=== PATIENT | female | born 1990 | race Caucasian/White ===

== ENCOUNTER → 2017-10-28 10:03 | Outpatient (CLI) | payer BC, SELFPAY ==
--- NOTE | 2017-10-28 10:08 | XR_ITS ---
XR lumbar spine min 4V Ordering Physician: Ksenia Vizcarra Patient Age: 27 years: Female HISTORY: ITS.REASON: ACUTE BILAT LOW BACK PAIN TECHNIQUE: 5 view lumbar spine series. COMPARISON :No prior FINDINGS The vertebral bodies are intact. No compression fractures or lesions. L5/S1. Mild disc space narrowing Other disc spaces appear intact. Minor Schmorl's node yields the subtle focal superior endplate cavity cavity at superior endplate L2. The pedicles intact.. No listhesis. Good alignment L-spine throughout. SI joints unremarkable. Moderate stool right colon. IMPRESSION: L5/S1. Mild disc space narrowing . Otherwise unremarkable L-spine
== END ==
PROVIDERS: PCP Family Medicine; Visit Provider Nurse Practitioner Family
DX: M54.5 Low back pain (principal)
CPT/HCPCS: 72110

== ENCOUNTER 2017-12-24 10:30 | Outpatient (RCR) | payer BC, SELFPAY | END 2018-01-14 11:27 | disposition home or self-care (01) | LOC: PT 10:30 | PROVIDERS: Family Provider Family Medicine; PCP Family Medicine; Visit Provider Nurse Practitioner Family | DX: M54.42 Lumbago with sciatica, left side (principal); M54.41 Lumbago with sciatica, right side | CPT/HCPCS: 97010; 97014; 97035; 97110; 97140; 97163; 97164; G0283 ==

== ENCOUNTER → 2018-04-06 08:51 | Outpatient (CLI) | payer BC, SELFPAY ==
[2018-04-06 14:18] LABS: Basophils % 0.4 % (0.1-2.0); Eosinophils # 0.3 K/mm3 (0.0-0.4); Eosinophils % 2.9 % (0.1-12.0); Hematocrit 42.4 % (37.0-47.0); Hemoglobin 13.6 g/dL (12.2-16.2); Lymphocytes # 3.3 K/mm3 (0.7-4.5); Mean Corpuscular Hemoglobin 28.3 pg (27.0-31.2); Mean Corpuscular Volume 88.5 fl (81-99); Mean Platelet Volume 8.4 fl (7.4-10.4); Monocytes # 0.4 K/mm3 (0.1-1.0); Neutrophils % 59.7 % (37.0-80.0); Platelet Count 298 K/mm3 (142-424); Red Blood Count 4.79 M/mm3 (4.20-5.40); White Blood Count 10.1 K/mm3 (4.8-10.8)
[2018-04-06 14:20] LABS: HCG Qualitative, Serum Negative (Negative)
[2018-04-06 15:03] LABS: Anion Gap 15.1 mEq/L (5-15); Blood Urea Nitrogen 9 mg/dL (7-18); Calcium 8.9 mg/dL (8.5-10.1); Carbon Dioxide 25 mmol/L (21.0-32.0); Chloride 105 mmol/L (98-107); Creatinine,Serum 0.72 mg/dL (0.55-1.02); Estimated Glomerular Filt Rate 97 ml/min (>60); GFR (African American) 118 ML/MIN (>60); Glucose 86 mg/dL (74-106); Potassium 4.1 mmoL/L (3.5-5.1); Sodium 141 mmol/L (136-145)
== END ==
PROVIDERS: PCP Family Medicine; Visit Provider Orthopaedic Surgery
DX: Z01.818 Encounter for other preprocedural examination (principal); M54.42 Lumbago with sciatica, left side; M54.41 Lumbago with sciatica, right side
CPT/HCPCS: 36415; 80048; 84703; 85025

== ENCOUNTER 2018-11-15 09:00 | Outpatient (RCR) | payer OTHER, SELFPAY | END 2018-12-20 10:57 | disposition home or self-care (01) | LOC: PT.CARL 09:00 | PROVIDERS: Visit Provider Orthopaedic Surgery | DX: S46.102A Unspecified injury of muscle, fascia and tendon of long head of biceps, left arm, initial encounter (principal) | CPT/HCPCS: 97010; 97014; 97033; 97035; 97110; 97140; 97163; G0283 ==

== ENCOUNTER → 2020-03-14 09:10 | Outpatient (POV) | payer SELFPAY ==
[2020-03-14 09:33] VITALS: BP 122/74; PULSE 85; RESP 18; O2SAT 98; BMI 33.8
--- NOTE | 2020-03-14 10:02 | HMH.PMCON ---
Assessment and Plan (1) Sacroiliitis Status: Acute Category: Medical Code(s): M46.1 - Sacroiliitis, not elsewhere classified (2) Low back pain Status: Chronic Category: Medical Code(s): M54.5 - Low back pain - Assessment and plan all Dx Assessment and Plan for all problems:: The patient has tried and failed conservative therapies of injections, physical therapy, and home stretching. She has tried anti-inflammatories as well as muscle relaxers. Patient says she has not gotten any relief. She does report that physical therapy made her pain worse. She has had surgical intervention in the past. She does have a positive compression, distraction, and Sabina's test today. She has tenderness noted over her left SI joint. She and I did discuss undergoing a left SI joint injection, however, she is not interested. We also discussed spinal cord stimulation. She did discuss this with her primary care provider in the past, however, she decided against it. Patient and I did discuss oral medications. She has tried taking multiple oral medications. We can order the patient prednisone for a week to see if this improves any of her pain. I will order her prednisone 20 mg 1 tablet p.o. twice daily for 5 days. She will follow-up with us after she sees Dr. Foley. Her appointment is the end of March. She has been instructed to contact clinic if she has any concerns before next appointment. The patient and I specifically discussed risk factors for COVID19. These risks include, but are not limited to age greater than 60, heart or lung disease, diabetes, immunosuppression, and travel. We also discussed NSAIDs may worsen COVID19 infection or symptoms. Patient should not use NSAIDs to treat COVID19 signs or symptoms. Patient was also informed that any type of corticosteroid of any form (oral or injection) will decrease the patient's immune system response and may increase the likelihood of COVID19 infection [address] symptoms[address]. Nielsen has reviewed this note and agrees with this plan of care. This note was dictated using voice recognition software and make contain errors or omissions. HPI - Data of Consult Patient: new to practice Consult date: 03/14/20 Requesting Physician: Annie Montana APRN Primary Care Provider: Ksenia Vizcarra APRN - Consult Narrative Reason for consult: Left low back pain, left buttock pain, left hip and leg pain History of present illness: Ms. Gamboa is a 29 year old female who presents today for consultation for left low back pain with radiation into left buttock, left hip, left groin, and left leg. Patient has a longstanding history of chronic low back pain. She reports that she had severe low back pain and 2017. She reports that she was throwing a softball and felt something pop in her back. She did see her primary care provider who referred her to Dr. Foley. At that time, the patient was noted to have some nerve impingement to her cervical and lumbar spine. She did undergo surgery. She had a repeat surgery in 2019 for herniated disc. She says that Had performed that surgery as well. On February 19 of this year, the patient was working at [employer] and was pulling a cart when she felt a popping sensation in her left low back area. Patient says that she felt immediate pain into her left low back area and left hip. She says that the pain radiated into her left buttock and down her left leg causing her to have numbness and tingling into her foot. Patient did follow-up with Dr. Foley at that time. He did send her for an MRI of her lumbar spine. She does have imaging with her today. She rates her pain a 7 out of 10. Patient says she has tried physical therapy and did not get relief. She also reports that she has tried anti-inflammatories as well as muscle relaxers. Patient says she has had more than 5 rounds of injections with epidurals and did not get any relief in the past. She does continue with a stretching p
== END ==
PROVIDERS: PCP Nurse Practitioner Family; Visit Provider Clinical Nurse Specialist Family Health
DX: M46.1 Sacroiliitis, not elsewhere classified (principal); M54.5 Low back pain
CPT/HCPCS: 99202

== ENCOUNTER 2021-05-09 08:59 | Emergency (ER) | payer BC, SELFPAY ==
[2021-05-09 09:00] VITALS: BP 128/71; PULSE 76; RESP 19; TEMP 37.1; O2SAT 98; BMI 36.6
--- NOTE | 2021-05-09 09:45 | HMH.EDUTC ---
[facility] [place]: Thrush Disposition: Home, Self-Care Condition on Discharge: Good Instructions: DI for Thrush, Thrush-Adult Additional Instructions: Eat yogurt twice per day for the next few weeks. You could take a probiotic also. Take the medications as directed. Let your ENT know what we prescribed and follow up with them. Follow up with your primary care physician. GO TO THE ER FOR ANY WORSENING SYMPTOMS OR CONCERN Prescriptions: Fluconazole [Diflucan 100mg tablet] 100 mg PO DAILY 7 Days #7 tab Transmission Status: Received by [id number] Referrals: Michael Gunn MD [Primary Care Provider] - Time of Disposition: 09:50 Medical Decision Making - Medical Records Medical records reviewed: No: I reviewed the patient's medical records. - Germán Inquiry Pt receiving controlled substance: No Vital Signs: 05/09/21 09:00 05/09/21 09:50 Temperature 98.8 F 98.8 F Temperature Source Oral Pulse Rate 76 Pulse Rate [Right Brachial] 76 Respiratory Rate 19 19 Blood Pressure 128/71 Blood Pressure [Right Arm] 128/71 Blood Pressure Mean [Right Arm] 90 Blood Pressure Source [Right Arm] Automatic Cuff Blood Pressure Position [Right Arm] Sitting 02 Sat by Pulse Oximetry 98 Oxygen Delivery Method Room Air [facility] [place] - General Stated complaint: possible thrush Time Seen by Provider: 05/09/21 09:25 Mode of Arrival: Ambulatory Source of Information: Patient Limitations: No Limitations Description of Symptoms (Recalled from Triage Doc. by RN): PATIENT C/O THRUSH O TONGUE SINCE YESTERDAY HEENT Symptoms (Recalled from RN notes): Yes Resp Symptoms (Recalled from RN notes): No Skin Symptoms (Recalled from RN notes): No MS Symptoms (Recalled from RN notes): No Functional Status (Recalled from RN notes): WNL - History of Present Illness Provider Complaint: She is here with complaints of having thrush. She had her tonsils removed a 5 days ago. She has done well since the surgery, but last night she started having a white coating on her tongue and her tongue is very tender when she tries to eat. - Related Data Home Medications Medication Instructions Recorded Confirmed ARIPiprazole [Abilify 10mg 10 mg PO DAILY 05/09/21 05/09/21 Tablet] Escitalopram Oxalate [Lexapro] 20 mg PO DAILY 05/09/21 05/09/21 Hydrocodone/Acetaminophen 1 tab PO QID 05/09/21 05/09/21 [Hydrocodone-Acetamin 7.5-325] Liraglutide [Saxenda] 3 mg SQ WEEKLY 05/09/21 05/09/21 Previous Rx's Medication Instructions Recorded Fluconazole [Diflucan 100mg tablet] 100 mg PO DAILY 7 Days #7 tab 05/09/21 Allergies Allergy/AdvReac Type Severity Reaction Status Date / Time cephalexin Allergy Unknown S-DIFF. Verified 01/27/19 14:07 BREATHING naproxen Allergy Unknown DOES NOT Verified 01/27/19 14:07 FEEL RIGHT. TONGUE TINGLING codeine Allergy Verified 01/27/19 14:07 meloxicam [From Mobic] Allergy Verified 05/09/21 09:19 - Worker's Comp Is this a Worker's Comp case?: No [facility] History - Hepatitis A Screen Drug use history?: No High risk sexual behaviors?: No History of sexually transmitted infection?: No Currently employed?: No Childcare worker?: No Do you have indoor plumbing?: Yes Do you have electricity?: Yes Attestation statement:: This patient has been screened for Hepatitis A risk factors. I have reviewed the patient's past medical history: Yes Medical History: Denies:: Cancer, Diabetes Mellitus Type 1, Diabetes Mellitus Type 2, MRSA Laterality Cases: Right: Arthroscopy Shoulder, Other, Bilateral: Myringotomy (Ear Tubes), Tonsillectomy Amputation: No Fractures: No - Social History Smoking Status: Current every day smoker Tobacco Type: cigarettes # Packs/Day (cigarettes): 1 Alcohol Intake: never Occupational Status: other Housing: house Household Members: other Family Hx:: Unable to obtain ROS Obtained: Yes All systems reviewed
[2021-05-09 09:50] VITALS: BP 128/71; PULSE 76; RESP 19; TEMP 37.1; O2SAT 98
== END 2021-05-09 09:55 | disposition home or self-care (01) ==
PROVIDERS: Emergency Provider Nurse Practitioner Family; PCP Family Medicine
DX: B37.0 Candidal stomatitis (principal); F17.210 Nicotine dependence, cigarettes, uncomplicated
CPT/HCPCS: 99202; G0463

== ENCOUNTER → 2021-09-30 11:16 | Outpatient (CLI) | payer BC, SELFPAY ==
--- NOTE | 2021-09-30 11:24 | XR_ITS ---
FINAL REPORT CLINICAL HISTORY: PAIN OF RIGHT HEEL FINDINGS: Axial and lateral views of the right calcaneus were obtained. There is no prior exam for comparison. There is no acute fracture or other acute osseous abnormality. There is an inferior calcaneal spur. The joint spaces are preserved. The soft tissues are unremarkable. IMPRESSION: No acute osseous abnormality of the right calcaneus. Reviewed, Interpreted and Dictated by Rossi Paulino MD Transcribed by Emma Brown Authenticated by Rossi Paulino MD on 09/30/2021 01:18:48 PM [facility]
== END ==
PROVIDERS: PCP Family Medicine; Visit Provider Nurse Practitioner Family
DX: M79.671 Pain in right foot (principal)
CPT/HCPCS: 73650

== ENCOUNTER 2021-10-13 11:22 | Emergency (ER) | payer BC, SELFPAY ==
--- NOTE | 2021-10-13 11:26 | XR_ITS ---
FINAL REPORT CLINICAL HISTORY: rolled ankle jumping over a fence FINDINGS: LEFT ANKLE Three views of the left ankle were obtained. There is no acute fracture or dislocation. The joint spaces and mortise are intact. There is a plantar calcaneal spur. There is no soft tissue abnormality. IMPRESSION: No acute bony abnormality. Reviewed, Interpreted and Dictated by Justen Castro III, MD Transcribed by Emma Brown Authenticated and . [facility]
[2021-10-13 11:30] VITALS: BP 134/87; PULSE 91; RESP 19; TEMP 37; O2SAT 98; BMI 38.0
--- NOTE | 2021-10-13 11:59 | HMH.EDUTC ---
[facility] [place] Clinical Impression: Ankle sprain Qualifiers: Encounter type: initial encounter Involved ligament of ankle: unspecified ligament Laterality: left Qualified Code(s): S93.402A - Sprain of unspecified ligament of left ankle, initial encounter Disposition: Home, Self-Care Condition on Discharge: Good Instructions: Ankle Sprain, DI for Ankle Sprain, How To Perform RICE (Rest, Ice, Compress, Elevate) Additional Instructions: *weight bearing as tolerated *RICE, Rest the extremity, Ice 15-20 minutes 3-4 times daily, Compress- wear the glenna wrap as discussed as much as possible to help reduce swelling and pain, Elevate the extremity when at rest *Walking boot is for support and help control swelling, use it except in the shower. Be sure that is not to tight but not to loose either *Elevate when resting *Ibuprofen as directed on package every 6-8 hours as needed for pain an inflammation. If need something more can take Tylenol in between doses of Ibuprofen to help Immediately follow up with your family doctor for new or worsening of symptoms, or no noticeable improvement over the next 3-5 days Return if needed Straight to ER if any life threatening symptoms You can call back to the [facility] later this evening for official Radiology reading of your xray Follow up with Podiatry if no improvement or any worsening of symptoms Referrals: Michael Gunn MD [Primary Care Provider] - Time of Disposition: 12:22 Medical Decision Making - Germán Inquiry Pt receiving controlled substance: No Germán was queried for this patient: No Vital Signs: 10/13/21 11:30 10/13/21 12:25 Temperature 98.6 F 98.6 F Temperature Source Oral Pulse Rate 91 H Pulse Rate [Right Brachial] 91 H Respiratory Rate 19 19 Blood Pressure 134/87 Blood Pressure [Right Arm] 134/87 Blood Pressure Mean [Right Arm] 102 Blood Pressure Source [Right Arm] Automatic Cuff Blood Pressure Position [Right Arm] Sitting 02 Sat by Pulse Oximetry 98 Oxygen Delivery Method Room Air - Radiology Data #1 Image(s): Ankle Image Reviewed: Yes I reviewed the patient's radiology image Preliminary Findings: No Fracture [place]en [facility] [place] - General Stated complaint: left ankle pain Time Seen by Provider: 10/13/21 11:59 Mode of Arrival: Ambulatory Source of Information: Patient Limitations: No Limitations Description of Symptoms (Recalled from Triage Doc. by RN): PATIENT C/O LEFT ANKLE PAIN AFTER TWISTED IT WHILE CLIMBING OVER A FENCE LAST NIGHT HEENT Symptoms (Recalled from RN notes): No Resp Symptoms (Recalled from RN notes): No Skin Symptoms (Recalled from RN notes): No MS Symptoms (Recalled from RN notes): Yes Functional Status (Recalled from RN notes): WNL - History of Present Illness Provider Complaint: Patient states that she was climbing over a fence last night when her hand got caught on the barbedwire and she rolled her left ankle States that ever since she has been having pain in her left ankle when she tries to walk on it or bare any weight so this morning she came in to get it checked out - Related Data Home Medications Medication Instructions Recorded Confirmed ARIPiprazole [Abilify 10mg 10 mg PO DAILY 05/09/21 05/09/21 Tablet] Escitalopram Oxalate [Lexapro] 20 mg PO DAILY 05/09/21 05/09/21 Hydrocodone/Acetaminophen 1 tab PO QID 05/09/21 05/09/21 [Hydrocodone-Acetamin 7.5-325] Liraglutide [Saxenda] 3 mg SQ WEEKLY 05/09/21 05/09/21 Previous Rx's Medication Instructions Recorded Fluconazole [Diflucan 100mg tablet] 100 mg PO DAILY 7 Days #7 tab 05/09/21 Allergies Allergy/AdvReac Type Severity Reaction Status Date / Time cephalexin Allergy Unknown S-DIFF. Verified 01/27/19 14:07 BREATHING naproxen Allergy Unknown DOES NOT Verified 01/27/19 14:07 FEEL RIGHT. TONGUE TINGLING codeine Allergy Verified 01/27/19 14:07 meloxicam [From Mobic] Allergy Verified 05/09/21 09:19 - Worker'
[2021-10-13 12:25] VITALS: BP 134/87; PULSE 91; RESP 19; TEMP 37; O2SAT 98
== END 2021-10-13 12:30 | disposition home or self-care (01) ==
PROVIDERS: Emergency Provider Nurse Practitioner; PCP Family Medicine
DX: S93.402A Sprain of unspecified ligament of left ankle, initial encounter (principal)
CPT/HCPCS: 73610; 99212; G0463

== ENCOUNTER 2022-04-18 11:42 | Emergency (ER) | payer BC, SELFPAY ==
[2022-04-18 11:50] VITALS: BP 156/87; PULSE 123; RESP 20; TEMP 36.9; O2SAT 98; BMI 38.2
[2022-04-18 12:30] VITALS: BP 156/87; PULSE 123; RESP 20; TEMP 36.9; O2SAT 98
--- NOTE | 2022-04-18 12:31 | EXP.UTC ---
Discharge Plan Disposition Patient Disposition: Home, Self-Care Condition: Good Prescriptions Prescriptions: New amoxicillin [amoxicillin] 500 mg tablet 500 mg PO BID 10 Days Qty: 20 0RF No Action phentermine 37.5 mg tablet 37.5 mg PO Label Comments: TAKE 1 TABLET BY MOUTH ONCE DAILY IN THE MORNING BEFORE BREAKFAST topiramate 25 mg tablet 25 mg PO Label Comments: TAKE 1 TABLET BY MOUTH ONCE DAILY escitalopram oxalate 20 MG tablet 20 mg PO DAILY aripiprazole 10 MG tablet 10 mg PO DAILY Referrals Follow up/Referrals: Michael Gunn MD [Primary Care Provider] - See instructions Activity Restrictions/Add. Instructions Additional Instructions/Restrictions: Start antibiotic as soon as possible and be sure to take as ordered for full length of time even though he should start feeling better in 24-48 hours. Tylenol or Motrin as needed for pain or fever Encourage fluids, water, Gatorade, Powerade, Pedialyte if infant/toddler/child Warm compresses often helps when placed over ear Return immediately for new or worsening symptoms no noticeable improvement in 48-72 hours and in 10-14 days to ensure the ears are return to baseline. Follow-up with primary care Clinical Impressions Clinical Impression: Otitis media, Upper respiratory infection Instructions Patient Instructions: Middle Ear Infection Discharge ED Provider: Hussein ([facility])Alic[place] [facility] [place] General Stated complaint: SARAVIA, body aches, diarrhea, cough Mode of Arrival: Ambulatory Source of Information: Patient Limitations: No Limitations Time Seen by Provider: 04/18/22 12:31 Description of Symptoms (Recalled from Triage Doc. by RN): PATIENT C/O BODY ACHES, SORE THROAT, AND RIGHT EAR PAIN THAT STARTED LAST NIGHT HEENT Symptoms (Recalled from RN notes): Yes Resp Symptoms (Recalled from RN notes): Yes Skin Symptoms (Recalled from RN notes): No MS Symptoms (Recalled from RN notes): No Functional Status (Recalled from RN notes): WNL History of Present Illness Provider Complaint: 31 yr old female presnets for body aches,fever and rt ear pain since last night Related Data Home Medications Medication Instructions Recorded Confirmed aripiprazole 10 mg tablet 10 mg PO DAILY Depression 05/09/21 10/29/21 escitalopram oxalate 20 mg tablet 20 mg PO DAILY Depression 05/09/21 10/29/21 phentermine 37.5 mg tablet 37.5 mg PO 10/29/21 10/29/21 topiramate 25 mg tablet 25 mg PO 10/29/21 10/29/21 Previous Rx's Medication Instructions Recorded amoxicillin 500 mg tablet 500 mg PO BID 10 days #20 tabs 04/18/22 Allergies Allergy/AdvReac Type Severity Reaction Status Date / Time cephalexin Allergy Unknown S-DIFF. Verified 01/27/19 14:07 BREATHING naproxen Allergy Unknown DOES NOT Verified 01/27/19 14:07 FEEL RIGHT. TONGUE TINGLING codeine Allergy Verified 01/27/19 14:07 meloxicam [From Mobic] Allergy Verified 05/09/21 09:19 peanut Allergy Verified 10/29/21 13:00 shellfish derived Allergy Verified 10/29/21 13:00 Worker's Comp Is this a Worker's Comp case?: No [facility] Disclaimer: The information contained in this section may have been updated after the patient was seen, as this information can be updated by other users. 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
[2022-04-18 12:33] LABS: Coronavirus 19, PCR Not Detected (NotDetected); Influenza B, PCR Not Detected (NotDetected)
[2022-04-18 12:57] LABS: Influenza A, PCR Detected (NotDetected)
== END 2022-04-18 12:36 | disposition home or self-care (01) ==
PROVIDERS: Emergency Provider Nurse Practitioner Family; PCP Family Medicine
DX: J10.1 Influenza due to other identified influenza virus with other respiratory manifestations (principal); H66.90 Otitis media, unspecified, unspecified ear
CPT/HCPCS: 99212; C9803; G0463; U0003; U0005

== ENCOUNTER → 2022-09-08 12:26 | Outpatient (CLI) | payer BC, SELFPAY ==
--- NOTE | 2022-09-08 13:20 | US_ITS ---
PROCEDURE INFORMATION: Exam: US Right Breast, Complete Exam date and time: 09/08/2022 1:43 PM Age: 31 years old Clinical indication: Breast pain; Right TECHNIQUE: Imaging protocol: Complete ultrasound of all four quadrants of the right breast and the retroareolar regions, including ultrasound of the axilla when performed. COMPARISON: No relevant prior studies available. FINDINGS: Breast: Sonographic images of the right breast including the retroareolar region, all 4 quadrants and the axilla do not demonstrate any solid or cystic masses. No architectural distortion or acoustical shadowing. No skin thickening or axillary adenopathy. IMPRESSION: No sonographic evidence of malignancy. Annual bilateral mammographic screening is recommended to commence at the age of 40 unless otherwise clinically indicated. ASSESSMENT: BI-RADS Category 1: Negative
== END ==
PROVIDERS: PCP Family Medicine; Visit Provider Family Medicine
DX: N64.4 Mastodynia (principal)
CPT/HCPCS: 76641

== ENCOUNTER 2024-01-15 20:57 | Emergency (ER) | payer BC, SELFPAY ==
[2024-01-15 20:58] VITALS: BP 150/99; PULSE 89; RESP 16; TEMP 36.9; O2SAT 98; BMI 35.6
--- NOTE | 2024-01-15 21:37 | ED_ITS ---
Discharge Plan Disposition Patient Disposition: Home, Self-Care Condition: Good Prescriptions Prescriptions: No Action fluoxetine [Prozac] 40 mg capsule 40 mg PO BID Rx Instructions: administer in the morning and at noon/midday aripiprazole 10 MG tablet 10 mg PO DAILY Referrals Follow up/Referrals: Michael Gunn MD [Primary Care Provider] - See instructions Activity Restrictions/Add. Instructions Additional Instructions/Restrictions: You were evaluated in the emergency department today. At this time, you have some blood in your urine as well as a mild elevation in your white blood cell count, but labs and CT are otherwise reassuring. Please follow-up very closely with your primary care provider for reassessment. Return to the emergency department for new or worsening symptoms. Take Tylenol and ibuprofen every 4-6 hours at home as needed for pain Clinical Impressions Clinical Impression: Abdominal pain, LLQ, Hematuria, Leukocytosis Stand Alone Forms Stand Alone Forms: Work/School Release Instructions Patient Instructions: DI for Acute Abdominal Pain Print Language Print Language: Telugu Discharge ED Provider: Iva Can General Adult HPI General Chief complaint: Abdominal Pain Stated complaint: L side stomach pain Time Seen by Provider: 01/15/24 21:26 Mode of Arrival: Ambulatory Source of Information: Patient Limitations: No Limitations Description of Symptoms (Recalled from ER Triage Doc. by RN): Pt presents with left lower abdominal pain that began this morning. Pt states she had an episode of diarrhea, denies any nausea or vomiting. History of Present Illness HPI narrative: This patient is a 33-year-old female who denies significant past medical history presenting to the emergency department for left lower quadrant abdominal pain that started this morning. She had 1 episode of nonbloody diarrhea. No fevers, chills, nausea, vomiting, vaginal bleeding, abnormal vaginal discharge, or other concerns. Pain is currently 5 out of 10 and feels like needles in her left pelvis Related Data Home Medications ?Medication ?Instructions ?Recorded ?Confirmed aripiprazole 10 mg tablet 10 mg PO DAILY Depression 05/09/21 08/19/23 fluoxetine 40 mg capsule (Prozac) 40 mg PO BID 07/29/22 08/19/23 Allergies Allergy/AdvReac Type Severity Reaction Status Date / Time cephalexin Allergy Unknown S-DIFF. Verified 08/19/23 10:00 BREATHING naproxen Allergy Unknown DOES NOT Verified 08/19/23 10:00 FEEL RIGHT. TONGUE TINGLING codeine Allergy Verified 08/19/23 10:00 meloxicam [From Mobic] Allergy Verified 08/19/23 10:00 peanut Allergy Verified 08/19/23 10:00 shellfish derived Allergy Verified 08/19/23 10:00 [facility] Disclaimer: The information contained in this section may have been updated after the patient was seen, as this information can be updated by other users. Medical History Heel spur Surgical History History of neck surgery History of back surgery History of tympanostomy tube placement History of tonsillectomy Social History Smoking Status: Current every day smoker tobacco type: cigarettes packs per day: 1 alcohol intake: never current occupational status: other Travel in the last 8 weeks: None household members: other housing: house ROS Obtained: Yes All systems reviewed & no additional complaints except as documented Physical Exam General General appearance: alert and in no apparent distress Head Head exam: atraumatic and normocephalic Eye Eye exam: Present normal appearance, PERRL and EOMI ENT ENT exam: Present normal exam, normal oropharynx, mucous membranes moist and normal external ear exam Neck Neck exam: Present normal inspection, full ROM and trachea midline; Absent tenderness Chest Chest inspection: Present normal inspection and symmetric chest wall rise; Absent tenderness Respiratory Respiratory exam: Present normal lung sounds bilaterally; Absent respiratory distress, wheezes, stridor or accessory muscle use Cardiovascular Cardiovascular exam: Present regular rate and normal rhythm Abdominal Exam Abdominal exam: Present soft; Absent distention, tenderness or guarding Extremities Exam Extremities exam: Present normal inspection, full ROM and normal capillary refill; Absent tenderness or edema Back Exam Back exam: Present normal inspection and full ROM; Absent tenderness Neurological Exam Neurological exam: Present alert, oriented X3, CN II-XII intact and normal gait; Absent motor sensory deficit Psychiatric Psychiatric exam: Present normal affect and normal mood Skin Skin exam: Present warm and dry Medical Decision Making Medical Records Medical records reviewed: Yes I reviewed the patient's medical records. Germán Inquiry Pt receiving controlled substance: No Vital Signs: 01/15/24 20:58 01/15/24 22:00 01/15/24 23:09 Temperature 98.4 F 98 F Temperature Source Oral Oral Pulse Rate 92 H 81 Pulse Rate [Left] 89 Respiratory Rate 16 16 Blood Pressure 136/90 119/81 Blood Pressure [Right Radial Artery] 150/99 H Blood Pressure Mean [Right Radial Artery] 116 Blood Pressure Source Automatic Cuff Blood Pressure Position Sitting 02 Sat by Pulse Oximetry 98 98 Oxygen Delivery Method Room Air Room Air Lab Data Lab results reviewed: Yes I reviewed the patient's lab results. Lab Results 01/15/24 21:15: Urine Color Yellow, Urine Appearance Clear, Urine pH 6.0, Ur Specific [place] >= 1.030, Urine Protein Negative, Urine Glucose (UA) Negative, Urine Ketones Negative, Urine Blood 1+ A, Urine Nitrate Negative, Urine Bilirubin Negative, Urine Urobilinogen 1.0, Ur Leukocyte Esterase Negative, Urine RBC 5-10, Urine WBC Occasional, Ur Squamous Epith Cells None, Urine Bacteria Trace 01/15/24 21:30: WBC 13.9 H, RBC 5.19, Hgb 15.8, Hct 49.7 H, MCV 95.8, MCH 30.4, MCHC 31.8, RDW 13.1, Plt Count 366, MPV 8.9, Neut % (Auto) 63.3, Lymph % (Auto) 28.7, [place] % (Auto) 5.7, Eos % (Auto) 1.1, Baso % (Auto) 1.1, Neut # (Auto) 8.8 H, Lymph # (Auto) 4.0, [place] # (Auto) 0.8, Eos # (Auto) 0.2, Baso # (Auto) 0.2, Sodium 137, Potassium 3.6, Chloride 105, Carbon Dioxide 24, Anion Gap 11.6, BUN 11, Creatinine 0.70, Estimated Creat Clear 160, Estimated GFR 96, Est GFR ( Amer) 117, Glucose 81, Calcium 9.2, Total Bilirubin 0.5, AST 29, ALT 26, Alkaline Phosphatase 80, Total Protein 8.1, Albumin 4.8, Globulin 3.3 H, Albumin/Globulin Ratio 1.5, Lipase 159, Serum HCG, Qual Negative 01/15/24 21:30 01/15/24 21:30 Orders (Tests/Meds): ED MEDICATIONS Discontinued Medications Generic Name Dose Route Start Last Admin Trade Name Freq PRN Reason Stop Dose Admin Lactated Ringer's 1,000 mls @ 999 mls/hr 01/15/24 21:45 01/15/24 21:48 Lactated Ringer's 1000 Ml Bag IV 01/15/24 22:45 999 mls/hr .Q1H1M ONE Administration ORDERS Category Date Time Status CT abdomen pelvis wo con Stat Cat Scan 01/15/24 21:58 Completed Complete Blood Count Auto Diff Stat Lab 01/15/24 21:30 Completed Comprehensive Metabolic Panel Stat Lab 01/15/24 21:30 Completed Lipase Stat Lab 01/15/24 21:30 Completed Serum [HCG Qualitative, Serum] Stat Lab 01/15/24 21:30 Completed UA [Urinalysis and Microscopic] Stat Lab 01/15/24 21:15 Completed Medical Decision Narrative: In summary, this patient is a 33-year-old female presenting to the Emergency Department for evaluation of left lower quadrant abdominal pain. Differential diagnoses considered include but are not limited to colitis, ureterolithiasis, cystitis, pyelonephritis, ovarian cyst, musculoskeletal strain/sprain. Ruling out the most morbid conditions drove assessment. On exam, the patient is well-appearing sitting upright in no acute distress with benign abdominal exam. Vitals are reassuring on cardiac telemetry. She declines need for pain medication at this time. workup included, CMP, lipase, urinalysis, test, and CT abdomen pelvis without IV contrast.. I independently interpreted CT scan prior to the radiologist read and noted this ureteral obstruction or hydronephrosis. Please see their read for final interpretation. They did note she has multiple pelvic phleboliths without obvious obstructive stone. No large ovarian cyst that would indicate risk of torsion or other issue. Labs were obtained that demonstrated mild leukocytosis as well as hematuria without other acutely concerning abnormalities. On reassessment, patient is resting comfortably again. At this time, she has mild leukocytosis as well as hematuria but no obvious concerns for urinary tract infection on urinalysis, no obstructive stones that are seen on scan, no obvious other acute surgical pathology that was seen on scan. 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 Ultimately given that the patient is well- appearing and exam and workup have been reassuring, I feel that she is appropriate for discharge home with close follow-up with primary care as well as strict return precautions. She was discharged after all questions were answered Critical Care Critical Care Time Critical Care Time: No
[2024-01-15 21:48] LABS: Microscopic, Urine URINE MICROSCOPIC (MICROSCOPIC)
[2024-01-15] MEDS: LACTATED RINGERS 1000ML 1,000 ML 999 ML IV (21:48)
[2024-01-15 21:49] LABS: Appearance,Urine CLEAR (Clear); Bilirubin,Urine Negative (Negative); Blood, Urine 1+ (Negative); Color,Urine YELLOW (Yellow); Glucose,Urine (UA) Negative (Negative); Ketones,Urine Negative (Negative); Leukocyte Esterase,Urine Negative (Negative); Nitrate,Urine Negative (Negative); Protein,Urine Negative (Negative); Specific Gravity, Urine >= 1.030 (1.005-1.030)
[2024-01-15 21:53] LABS: Basophils # 0.2 K/mm3 (0-0.2); Basophils % 1.1 % (0.1-2.0); Eosinophils # 0.2 K/mm3 (0.0-0.4); Eosinophils % 1.1 % (0.1-12.0); Hematocrit 49.7 % (37.0-47.0); Hemoglobin 15.8 g/dL (12.2-16.2); Lymphocytes % 28.7 % (10-50); Mean Corpuscular HGB Conc 31.8 g/dL (31.8-35.4); Mean Corpuscular Hemoglobin 30.4 pg (27.0-31.2); Mean Corpuscular Volume 95.8 fl (81-99); Mean Platelet Volume 8.9 fl (7.4-10.4); Monocytes # 0.8 K/mm3 (0.1-1.0); Monocytes % 5.7 % (1.7-9.3); Neutrophils # 8.8 K/mm3 (1.8-7.8); Neutrophils % 63.3 % (37.0-80.0); Platelet Count 366 K/mm3 (142-424); Red Blood Count 5.19 M/mm3 (4.20-5.40); Red Cell Distribution Width 13.1 % (11.5-17.5); White Blood Count 13.9 K/mm3 (4.8-10.8)
--- NOTE | 2024-01-15 21:58 | CT_ITS ---
PROCEDURE INFORMATION: Exam: CT Abdomen And Pelvis Without Contrast Exam date and time: 01/15/2024 10:12 PM Age: 33 years old Clinical indication: Other: Hematuria; Abdominal pain; Additional info: Llq pain, hematuria TECHNIQUE: Imaging protocol: Computed tomography of the abdomen and pelvis without contrast. Radiation optimization: All CT scans at this facility use at least one of these dose optimization techniques: automated exposure control; mA and/or kV adjustment per patient size (includes targeted exams where dose is matched to clinical indication); or iterative reconstruction. COMPARISON: 1. CR XR LUMBAR SPINE MIN 4V 01/27/2019 2:29 PM 2. CR [id number] XR lumbar spine min 4V 10/28/2017 10:30 AM FINDINGS: Liver: Normal. Gallbladder and biliary ducts: No acute process. Pancreas: Normal. Spleen: There is a small splenule. Adrenal glands: The adrenal glands appear normal. Kidneys and ureters: There are numerous pelvic phleboliths but no definite hydroureter or intraureteral calculus is seen. Stomach and bowel: The stomach, small bowel, and colon are well-distended and show no evidence of wall thickening, masses, or obstruction. Appendix: No evidence of appendicitis. Intraperitoneal space: Unremarkable. Vasculature: See Kidneys and ureters finding. Lymph nodes: No lymphadenopathy. Urinary bladder: Unremarkable as visualized. Reproductive: No acute process. Bones/joints: There is surgical hardware within the lumbar spine. Soft tissues: Unremarkable. IMPRESSION: 1. No acute pathology is identified in the abdomen or pelvis. No hydronephrosis. 2. There are numerous pelvic phleboliths but no definite hydroureter or intraureteral calculus is seen.
[2024-01-15 22:00] VITALS: BP 136/90; PULSE 92; O2SAT 98
[2024-01-15 22:00] LABS: Chloride 105 mmol/L (98-107)
[2024-01-15 22:01] LABS: Albumin Level 4.8 g/dl (3.5-5.0); Potassium 3.6 mmoL/L (3.5-5.1); Sodium 137 mmol/L (136-145)
[2024-01-15 22:02] LABS: Bacteria,Urine Trace /lpf; WBC,Urine Occasional #/hpf (0-3)
[2024-01-15 22:03] LABS: Alanine Aminotransferase 26 U/L (12-78); Aspartate Amino Transferase 29 U/L (14-36); Blood Urea Nitrogen 11 mg/dl (7-17); Creatinine Clearance Estimated 160 mL/min (50-200); Estimated Glomerular Filt Rate 96 ml/min (>60); GFR (African American) 117 ML/MIN (>60)
[2024-01-15 22:04] LABS: Albumin/Globulin Ratio 1.5 (1.1-1.8); Alkaline Phosphatase 80 U/L (38-126); Anion Gap 11.6 mEq/L (5-15); Bilirubin,Total 0.5 mg/dl (0.2-1.3); Calcium 9.2 mg/dl (8.4-10.2); Carbon Dioxide 24 mmol/L (22.0-30.0); Globulin 3.3 g/dL (1.3-3.2); Glucose 81 mg/dl (74-100); Lipase 159 U/L (23-300); Total Protein,Serum 8.1 g/dl (6.3-8.2)
[2024-01-15 22:05] LABS: HCG Qualitative, Serum Negative (Negative)
[2024-01-15 23:09] VITALS: BP 119/81; PULSE 81; RESP 16; TEMP 36.6; O2SAT 98
== END 2024-01-15 23:10 | disposition home or self-care (01) ==
PROVIDERS: Emergency Provider Emergency Medicine; PCP Family Medicine
DX: R10.32 Left lower quadrant pain (principal); R31.9 Hematuria, unspecified; D72.829 Elevated white blood cell count, unspecified; R19.7 Diarrhea, unspecified; F17.210 Nicotine dependence, cigarettes, uncomplicated
CPT/HCPCS: 74176; 80053; 81001; 83690; 84703; 85025; 96360; 99285; J7120

== ENCOUNTER 2024-02-18 08:30 | Outpatient (CLI) | payer BC, SELFPAY ==
--- NOTE | 2024-02-18 08:31 | US_ITS ---
PROCEDURE: US TRANSVAGINAL CLINICAL INDICATION: left sided abdominal/pelvic pain,heavy menses COMPARISON: CT CT ABDOMEN PELVIS WO CON from 01/15/2024 FINDINGS: Transvaginal sonographic images of the pelvis were obtained. UTERUS: 8.1cm x 5.8 cmx 4.0cm anteverted with a combined endometrial thickness of 6.9mm. LEFT OVARY: 3.9 cmx2.7 cmx3.2cm with a volume of 17.8ml. There is a follicle measuring 2.3 cm x 2.8 cm x 2.4 cm. RIGHT OVARY: 3.1cmx 2.7 cmx2.6 cm with a volume of 11.2ml. There are multiple small peripheral follicles giving the ovary a polycystic appearance. Both ovaries are seen and appear normal. Doppler flow to both ovaries are seen. There is no fluid in the cul-de-sac. IMPRESSION: 1. Anteverted uterus normal in shape and size. The endometrium is normal and measures 6.9 mm. 2. Both ovaries are seen and appear normal. The left ovary has a follicle measuring 2.8 cm. The right ovary has multiple small follicles giving the ovary a polycystic appearance. 3. No fluid in the cul-de-sac. Dictated by: Sung Leone MD 02/19/2024 06:15 Sung Leone MD in [place] 02/19/2024 06:15
== END 2024-02-18 23:59 | disposition home or self-care (01) ==
LOC: RAD 08:31
PROVIDERS: PCP Nurse Practitioner Obstetrics & Gynecology; Visit Provider Nurse Practitioner Obstetrics & Gynecology
DX: R10.2 Pelvic and perineal pain (principal); R10.32 Left lower quadrant pain; N92.0 Excessive and frequent menstruation with regular cycle
CPT/HCPCS: 76830

== ENCOUNTER 2024-03-06 08:02 | Emergency (ER) | payer BC, SELFPAY ==
[2024-03-06 08:25] VITALS: BP 128/78; PULSE 87; RESP 20; TEMP 36.8; O2SAT 97; BMI 35.6
--- NOTE | 2024-03-06 08:35 | EXP.UTC ---
Discharge Plan Disposition Patient Disposition: Home, Self-Care Condition: Good Prescriptions Prescriptions: New azithromycin [Zithromax] 250 mg tablet 250 mg PO UD DOSE PK Qty: 6 0RF Rx Instructions: Take two (2) tablets today, then one (1) tablet days #2 thru #5 methylprednisolone 4 mg Tablets,Dose Pack 4 mg PO DIRECTED 6 Days Qty: 21 0RF Rx Instructions: Take 1 pack as directed for 6 days [id number] [Bromfed DM] 2-30-10 mg/5 mL Syrup 5 ml PO Q6H PRN (Reason: Cough) Qty: 240 0RF No Action fluoxetine 40 mg capsule 40 mg PO DAILY ibuprofen 800 mg tablet 800 mg PO TID Patient Comments: TAKE ONE TABLET BY MOUTH THREE TIMES DAILY NEEDED spironolactone 50 mg tablet 50 mg PO DAILY buspirone 15 mg tablet 15 mg PO DAILY Referrals Follow up/Referrals: Michael Gunn MD [Primary Care Provider] - See instructions Activity Restrictions/Add. Instructions Additional Instructions/Restrictions: Drink plenty of fluids. Take tylenol or ibuprofen for pain or fever. Take the medications as directed. Follow up with your regular doctor. GO TO THE ER FOR ANY WORSENING SYMPTOMS Clinical Impressions Clinical Impression: Otitis media, Bronchitis Stand Alone Forms Stand Alone Forms: Work/School Release Instructions Patient Instructions: Acute Bronchitis, DI for Acute Bronchitis Print Language Print Language: Monegasque Discharge ED Provider: [place]is [facility] [place] General Stated complaint: cough Time Seen by Provider: 03/06/24 08:35 Related Data Home Medications ?Medication ?Instructions ?Recorded ?Confirmed buspirone 15 mg tablet 15 mg PO DAILY 03/06/24 03/06/24 fluoxetine 40 mg capsule 40 mg PO DAILY 03/06/24 03/06/24 ibuprofen 800 mg tablet 800 mg PO TID 03/06/24 03/06/24 spironolactone 50 mg tablet 50 mg PO DAILY 03/06/24 03/06/24 Previous Rx's ?Medication ?Instructions ?Recorded azithromycin 250 mg tablet 250 mg PO UD DOSE PK #6 tabs 03/06/24 (Zithromax) [id number] 5 ml PO Q6H PRN Cough #240 mL 03/06/24 2 mg-30 mg-10 mg/5 mL oral syrup (Bromfed DM) methylprednisolone 4 mg tablets in 4 mg PO DIRECTED 6 days #21 tabs 03/06/24 a dose pack Allergies Allergy/AdvReac Type Severity Reaction Status Date / Time cephalexin Allergy Unknown S-DIFF. Verified 02/16/24 09:27 BREATHING naproxen Allergy Unknown DOES NOT Verified 02/16/24 09:27 FEEL RIGHT. TONGUE TINGLING codeine Allergy Verified 02/16/24 09:27 meloxicam [From Mobic] Allergy Verified 02/16/24 09:27 peanut Allergy Verified 02/16/24 09:27 shellfish derived Allergy Verified 02/16/24 09:27 [facility] Disclaimer: The information contained in this section may have been updated after the patient was seen, as this information can be updated by other users. Medical History Heel spur Surgical History History of neck surgery History of back surgery History of tympanostomy tube placement History of tonsillectomy Social History Smoking Status: Current every day smoker tobacco type: cigarettes packs per day: 1 alcohol intake: never current occupational status: other Travel in the last 8 weeks: None household members: other housing: house ROS Obtained: Yes All systems reviewed & no additional complaints except as documented Constitutional Constitutional: Denies chills, Reports fever(s) and Reports poor appetite Eyes Eyes: Denies eye discharge ENT Ears, Nose, Mouth, and Throat: Denies ear discharge, Reports otalgia, Denies hearing loss, Denies sinus pain and Reports sore throat Cardiovascular Cardiovascular: Denies chest pain and Denies dyspnea Respiratory Respiratory: Denies chest congestion, Reports cough and Denies dyspnea Gastrointestinal Gastrointestingal: Denies abdominal pain, diarrhea, nausea or vomiting Musculoskeletal Musculoskeletal: Denies arthralgias Integumentary/Breasts Skin/Breast: Denies rash Physical Exam General General appearance: alert and in no apparent distress Head Head exam: atraumatic, normocephalic and normal inspection Eye Eye exam: Present normal appearance; Absent PERRL or EOMI ENT ENT exam: Present mucous membranes moist and normal external ear exam Expanded ENT Exam TM/Canal exam: Bilateral TM: erythema, bulging and effusion Nose exam: Absent sinus tenderness Nasal speculum exam: Bilateral: normal Mouth exam: Present normal external inspection and other; Absent drooling Teeth exam: Present normal inspection Throat exam: Present tonsillar erythema and tonsillomegaly Neck Neck exam: Present normal inspection, full ROM and trachea midline; Absent tenderness, meningismus or lymphadenopathy Chest Chest inspection: Present normal inspection and symmetric chest wall rise; Absent tenderness Respiratory Respiratory exam: Present normal lung sounds bilaterally; Absent respiratory distress, wheezes or stridor Cardiovascular Cardiovascular exam: Present regular rate, normal rhythm and normal heart sounds; Absent tachycardia or irregular rhythm Abdominal Exam Abdominal exam: Present soft and normal bowel sounds; Absent distention, tenderness, guarding, rebound or rigidity Extremities Exam Extremities exam: Present normal inspection and normal capillary refill; Absent tenderness, joint swelling or calf tenderness Back Exam Back exam: Present normal inspection and full ROM; Absent tenderness, CVA tenderness (R) or CVA tenderness (L) Neurological Exam Neurological exam: Present alert, oriented X3, CN II-XII intact, normal gait and reflexes normal; Absent motor sensory deficit Psychiatric Psychiatric exam: Present normal affect and normal mood Skin Skin exam: Present warm, dry, intact and normal color Lymphatic Lymphatic Findings: no adenopathy Medical Decision Making Medical Records Medical records reviewed: No I reviewed the patient's medical records. Screening: Per USPSTF and CDC recommendations, given the prevalence of disease in our region, it is our hospital?s policy to screen for HIV and viral Hepatitis for all patients aged 18 and over and those with ongoing risk factors. Germán Inquiry Pt receiving controlled substance: No Lab Data Lab results reviewed: Yes I reviewed the patient's lab results.
[2024-03-06 08:53] VITALS: BP 128/78; PULSE 87; RESP 20; TEMP 36.8; O2SAT 97
== END 2024-03-06 08:58 | disposition home or self-care (01) ==
LOC: ER 08:04 → UTC 08:07
PROVIDERS: Emergency Provider Psychiatry & Neurology Clinical Neurophysiology; PCP Family Medicine
DX: J20.9 Acute bronchitis, unspecified (principal); H66.90 Otitis media, unspecified, unspecified ear; R05.9 Cough, unspecified; R50.9 Fever, unspecified; R63.8 Other symptoms and signs concerning food and fluid intake; R07.0 Pain in throat; H92.09 Otalgia, unspecified ear
CPT/HCPCS: 99212; G0381

== ENCOUNTER 2024-04-26 14:14 | Outpatient (CLI) | payer MEDICARE, SELFPAY ==
[2024-04-26 20:31] LABS: Alanine Aminotransferase 22 U/L (12-78); Albumin Level 4.4 g/dl (3.5-5.0); Albumin/Globulin Ratio 1.6 (1.1-1.8); Alkaline Phosphatase 84 U/L (38-126); Anion Gap 12.6 mEq/L (5-15); Aspartate Amino Transferase 30 U/L (14-36); Bilirubin,Total 0.4 mg/dl (0.2-1.3); Blood Urea Nitrogen 13 mg/dl (7-17); Calcium 9.6 mg/dl (8.4-10.2); Carbon Dioxide 19 mmol/L (22.0-30.0); Chloride 109 mmol/L (98-107); Estimated Glomerular Filt Rate 96 ml/min (>60); GFR (African American) 117 ML/MIN (>60); Globulin 2.8 g/dL (1.3-3.2); Glucose 76 mg/dl (74-100); Potassium 4.6 mmoL/L (3.5-5.1); Sodium 136 mmol/L (136-145); Total Protein,Serum 7.2 g/dl (6.3-8.2)
[2024-04-26 22:11] LABS: HIV Combo NEGATIVE (Negative)
[2024-04-27 07:09] LABS: HCV Ab Non Reactive (Non Reactive)
== END 2024-04-26 23:59 | disposition home or self-care (01) ==
LOC: LAB 14:18
PROVIDERS: PCP Family Medicine; Visit Provider Nurse Practitioner Obstetrics & Gynecology
DX: Z01.419 Encounter for gynecological examination (general) (routine) without abnormal findings (principal); Z79.899 Other long term (current) drug therapy
CPT/HCPCS: 36415; 80053; 86803; 87389

== ENCOUNTER 2024-05-05 13:08 | Outpatient (CLI) | payer MEDICARE, SELFPAY ==
--- NOTE | 2024-05-05 13:09 | US_ITS ---
PROCEDURE: US TRANSVAGINAL CLINICAL INDICATION: check iud placement COMPARISON: CT CT ABDOMEN PELVIS WO CON from 01/15/2024 US US TRANSVAGINAL from 02/18/2024 FINDINGS: Transvaginal sonographic images of the pelvis were obtained. UTERUS: 8.3cm x 5.1cmx 4.1cm anteverted with a combined endometrial thickness of 5.1mm. The endometrium appears homogeneous. There is an IUD within the uterine cavity in the correct position. LEFT OVARY: 3.4cmx1.6 cmx1.9cm with a volume of 5.6ml. Difficult to visualize. RIGHT OVARY: 3.6 cmx 2.1cmx2.6 cm with a volume of 10.3ml. There are multiple small follicles. Both ovaries are seen and appear normal. Doppler flow to both ovaries are seen. There is no fluid in the cul-de-sac. IMPRESSION: 1. Anteverted uterus normal in shape and size. The endometrium is thin. The there is an IUD within the uterine cavity that appears to be in the correct position. 2. The right ovary is seen and appears normal. The left ovary is difficult to visualize and appears normal. 3. No fluid in the cul-de-sac. Dictated by: Sung Leone MD 05/05/2024 18:00 Sung Leone MD in [place] 05/05/2024 18:00
== END 2024-05-05 23:59 | disposition home or self-care (01) ==
LOC: RAD 13:09
PROVIDERS: PCP Family Medicine; Visit Provider Obstetrics & Gynecology
DX: R10.2 Pelvic and perineal pain (principal)
CPT/HCPCS: 76830

== ENCOUNTER 2024-07-11 15:04 | Emergency (ER) | payer BC, MEDICAID, SELFPAY ==
[2024-07-11 15:15] VITALS: BP 140/99; PULSE 95; RESP 20; TEMP 36.6; O2SAT 97; BMI 37.6
[2024-07-11 15:33] LABS: Urine Pregnancy, HCG Qual. Negative (Negative)
[2024-07-11 16:06] LABS: Basophils # 0.1 K/mm3 (0-0.2); Basophils % 0.4 % (0.1-2.0); Eosinophils # 0.2 K/mm3 (0.0-0.4); Eosinophils % 1.3 % (0.1-12.0); Hematocrit 42.5 % (37.0-47.0); Hemoglobin 14.4 g/dL (12.2-16.2); Lymphocytes # 3.9 K/mm3 (0.7-4.5); Lymphocytes % 34.7 % (10-50); Mean Corpuscular HGB Conc 33.9 g/dL (31.8-35.4); Mean Corpuscular Hemoglobin 30.4 pg (27.0-31.2); Mean Corpuscular Volume 89.7 fl (81-99); Mean Platelet Volume 10.7 fl (7.4-10.4); Monocytes # 0.7 K/mm3 (0.1-1.0); Monocytes % 6.1 % (1.7-9.3); Neutrophils # 6.5 K/mm3 (1.8-7.8); Neutrophils % 57.3 % (37.0-80.0); Platelet Count 355 K/mm3 (142-424); Red Blood Count 4.74 M/mm3 (4.20-5.40); Red Cell Distribution Width 12.6 % (11.5-17.5); White Blood Count 11.3 K/mm3 (4.8-10.8)
--- NOTE | 2024-07-11 16:06 | HMH.EDGENADL ---
Discharge Plan Disposition Patient Disposition: Home, Self-Care Condition: Good Prescriptions Prescriptions: No Action ropinirole 0.5 mg tablet 0.5 mg PO HS Patient Comments: TAKE ONE TABLET BY MOUTH NIGHTLY AT BEDTIME quetiapine 25 mg tablet 25 mg PO DAILY cholecalciferol (vitamin D3) 1,250 mcg (50,000 unit) capsule 1,250 mcg PO WEEKLY albuterol sulfate [Ventolin HFA] 90 mcg/actuation HFA aerosol inhaler inhalation Patient Comments: INHALE TWO PUFFS BY MOUTH EVERY 4 HOURS by MOUTH NEEDED FOR shortness of breath or wheezing albuterol sulfate 2.5 mg /3 mL (0.083 %) solution for nebulization inhalation Patient Comments: INHALE contents of 3ml vial via nebulizer three times daily as needed for wheezing alprazolam [Xanax] 0.25 mg tablet 0.25 mg PO DAILY PRN spironolactone 50 mg tablet 100 mg PO DAILY Qty: 60 5RF ibuprofen 800 mg tablet 800 mg PO TID Patient Comments: TAKE ONE TABLET BY MOUTH THREE TIMES DAILY NEEDED buspirone 15 mg tablet 15 mg PO DAILY fluoxetine 40 mg capsule 40 mg PO BID Referrals Follow up/Referrals: Sung Leone MD [Staff Physician] - See instructions Michael Gunn MD [Primary Care Provider] - See instructions Activity Restrictions/Add. Instructions Additional Instructions/Restrictions: You were evaluated in the emergency department today. Please follow-up closely with your interactive graphic designer. Take 800 mg of ibuprofen every 8 hours as needed for bleeding and cramping. Return to the emergency department for new or worsening symptoms. Clinical Impressions Clinical Impression: Vaginal bleeding Stand Alone Forms Stand Alone Forms: Work/School Release Instructions Patient Instructions: DI for Vaginal Bleeding Print Language Print Language: Nepali Discharge ED Provider: Iva Can General Adult HPI General Chief complaint: Vaginal Bleeding Stated complaint: weakness,cramping and bleeding from menst. Time Seen by Provider: 07/11/24 15:19 Mode of Arrival: Ambulatory Source of Information: Patient Description of Symptoms (Recalled from ER Triage Doc. by RN): pt has had problems with vaginal bleeding from iud, had it removed on by dr charlotte alexander, ever since bleeding and clots have gotten worse, pt is changing a tampon every 30 minutes, no chance of History of Present Illness HPI narrative: This patient is a 33-year-old female with a history of obesity and prior neck and back surgeries presenting to the emergency department for evaluation with concern for vaginal bleeding. Patient reports that she had an IUD placed in April, and shortly afterwards started having vaginal bleeding that occurred every day. She states that given this, she elected to have it removed 07/06/2024. She notes that yesterday, she started having really heavy vaginal bleeding. She states that she is passing large clots and feeling weak. She notes some mild pelvic cramping but no localizable abdominal pain. No other concerns noted at this time. Related Data Home Medications ?Medication ?Instructions ?Recorded ?Confirmed buspirone 15 mg tablet 15 mg PO DAILY 03/06/24 07/06/24 ibuprofen 800 mg tablet 800 mg PO TID 03/06/24 07/06/24 fluoxetine 40 mg capsule 40 mg PO BID 04/26/24 07/06/24 quetiapine 25 mg tablet 25 mg PO DAILY 04/26/24 07/06/24 ropinirole 0.5 mg tablet 0.5 mg PO HS 04/26/24 07/06/24 albuterol sulfate 2.5 mg/3 mL mg inhalation 07/06/24 07/06/24 (0.083 %) solution for nebulization albuterol sulfate 90 mcg/actuation inhalation 07/06/24 07/06/24 aerosol inhaler (Ventolin HFA) alprazolam 0.25 mg tablet (Xanax) 0.25 mg PO DAILY PRN 07/06/24 07/06/24 cholecalciferol (vitamin D3) 1,250 1,250 mcg PO WEEKLY 07/06/24 07/06/24 mcg (50,000 unit) capsule Previous Rx's ?Medication ?Instructions ?Recorded spironolactone 50 mg tablet 100 mg (2 x 50 mg) PO DAILY #60 04/03/24 tabs Allergies Allergy/AdvReac Type Severity Reaction Status Date / Time cephalexin Allergy Unknown S-DIFF. Verified 07/06/24 09:55 BREATHING naproxen Allergy Unknown DOES NOT Verified 07/06/24 09:55 FEEL RIGHT. TONGUE TINGLING codeine Allergy Verified 07/06/24 09:55 meloxicam (From Mobic) Allergy Verified 07/06/24 09:55 peanut Allergy Verified 07/06/24 09:55 shellfish derived Allergy Verified 07/06/24 09:55 pregabalin (From Lyrica) AdvReac Intermediate Hallucinati Verified 07/06/24 09:55 ng [facility] Disclaimer: The information contained in this section may have been updated after the patient was seen, as this information can be updated by other users. Medical History Other superintendent terminal (current) drug therapy Low back pain Heel spur Surgical History History of hand surgery H/O shoulder surgery History of neck surgery History of back surgery History of tympanostomy tube placement History of tonsillectomy Family History Other No significant family history Social History Smoking Status: Current every day smoker tobacco type: cigarettes packs per day: 1 alcohol intake: never current occupational status: other Travel in the last 8 weeks: None household members: other housing: house Have you lived/traveled outside US in past 30 days?: No Contact w/someone who lives/traveled outside US past 30 days?: No Exposure to someone with infectious disease in past 14 days?: No Do you have a fever (greater than 100.4 F or 38 C)?: No Have you tested positive for COVID-19: No Exposed to someone with COVID-19 in past 14 days?: No Do you have a sore throat?: No Do you have a cough?: No Do you have any weakness?: Yes Do you have any diarrhea?: No Are you experiencing any unusual bleeding?: Yes Do you have any muscle aches/pain?: No Do you have any abdominal pain?: No Are you experiencing loss of taste or smell?: No Other Medical History Have you received the Flu Vaccine for this season: Yes Have you received the Pneumonia Vaccine: No ROS Obtained: Yes All systems reviewed & no additional complaints except as documented Physical Exam General General appearance: alert and in no apparent distress Head Head exam: atraumatic and normocephalic Eye Eye exam: Present normal appearance, PERRL and EOMI ENT ENT exam: Present normal exam, normal oropharynx, mucous membranes moist and normal external ear exam Neck Neck exam: Present normal inspection, full ROM and trachea midline; Absent tenderness Chest Chest inspection: Present normal inspection and symmetric chest wall rise; Absent tenderness Respiratory Respiratory exam: Present normal lung sounds bilaterally; Absent respiratory distress, wheezes, stridor or accessory muscle use Cardiovascular Cardiovascular exam: Present regular rate and normal rhythm Abdominal Exam Abdominal exam: Present soft; Absent distention, tenderness or guarding Extremities Exam Extremities exam: Present normal inspection, full ROM and normal capillary refill; Absent tenderness or edema Back Exam Back exam: Present normal inspection and full ROM; Absent tenderness Neurological Exam Neurological exam: Present alert, oriented X3, CN II-XII intact and normal gait; Absent motor sensory deficit Psychiatric Psychiatric exam: Present normal affect and normal mood Skin Skin exam: Present warm and dry Medical Decision Making Medical Records Medical records reviewed: Yes I reviewed the patient's medical records. Screening: Per USPSTF and CDC recommendations, given the prevalence of disease in our region, it is our hospital?s policy to screen for HIV and viral Hepatitis for all patients aged 18 and over and those with ongoing risk factors. Germán Inquiry Pt receiving controlled substance: No Vital Signs: 07/11/24 15:15 07/11/24 16:38 Temperature 97.9 F 98.2 F Temperature Source Oral Pulse Rate 90 Pulse Rate [Left Radial] 95 H Respiratory Rate 20 20 Blood Pressure 148/78 H Blood Pressure [Right Arm] 140/99 H Blood Pressure Mean [Right Arm] 112 02 Sat by Pulse Oximetry 97 Oxygen Delivery Method Room Air Room Air Lab Data Lab results reviewed: Yes I reviewed the patient's lab results. Lab Results 07/11/24 15:26: Urine HCG, Qual Negative 07/11/24 15:39: WBC 11.3 H, RBC 4.74, Hgb 14.4, Hct 42.5, MCV 89.7, MCH 30.4, MCHC 33.9, RDW 12.6, Plt Count 355, MPV 10.7 H, Neut % (Auto) 57.3, Lymph % (Auto) 34.7, [place] % (Auto) 6.1, Eos % (Auto) 1.3, Baso % (Auto) 0.4, Neut # (Auto) 6.5, Lymph # (Auto) 3.9, [place] # (Auto) 0.7, Eos # (Auto) 0.2, Baso # (Auto) 0.1, Sodium 136, Potassium 4.3, Chloride 105, Carbon Dioxide 23, Anion Gap 12.3, BUN 12, Creatinine 0.80, Estimated Creat Clear 148, Estimated GFR 83, Est GFR ( Amer) 100, Glucose 88, Calcium 9.2, Total Bilirubin 0.2, AST 32, ALT 25, Alkaline Phosphatase 77, Total Protein 7.6, Albumin 4.6, Globulin 3.0, Albumin/Globulin Ratio 1.5 07/11/24 15:39 07/11/24 15:39 Orders (Tests/Meds): ORDERS Category Date Time Status CBC w/Auto Diff [Complete Blood Count Auto Diff] Stat Lab 07/11/24 15:39 Completed CMP [Comprehensive Metabolic Panel] Stat Lab 07/11/24 15:39 Completed Urine , HCG Qual. Stat Lab 07/11/24 15:26 Completed Medical Decision Narrative: In summary, this patient is a 33-year-old female presenting to the Emergency Department for evaluation of vaginal bleeding after having IUD removed. Differential diagnoses considered include but are not limited to dysmenorrhea, anemia, normal vaginal bleeding after IUD removal, , ovarian cyst. Ruling out the most morbid conditions drove assessment. I reviewed patient's past medical records and noted IUD removal 07/06/2024 which was uncomplicated. On exam, the patient is well-appearing. She has mild hypertension and no significant tachycardia, which is reassuring against significant acute blood loss anemia. It was like they are planning to schedule her for a uterine ablation. Workup included CBC, CMP, urine test. Urine test is negative. Pelvic exam was performed with no active pooling. Minimal blood in vaginal vault. Labs reassuring with normal hemoglobin. Given this, I feel the patient is appropriate for discharge home with close follow-up with gynecology and trial of NSAIDs for cramping and dysfunctional uterine bleeding. She notes she already has ibuprofen prescription strength at home. Strict return precautions given and she was discharged after all questions were through. Critical Care Critical Care Time Critical Care Time: No
[2024-07-11 16:09] LABS: Chloride 105 mmol/L (98-107)
[2024-07-11 16:10] LABS: Albumin Level 4.6 g/dl (3.5-5.0); Potassium 4.3 mmoL/L (3.5-5.1); Sodium 136 mmol/L (136-145)
[2024-07-11 16:12] LABS: Alanine Aminotransferase 25 U/L (12-78); Blood Urea Nitrogen 12 mg/dl (7-17); Creatinine Clearance Estimated 148 mL/min (50-200); Estimated Glomerular Filt Rate 83 ml/min (>60); GFR (African American) 100 ML/MIN (>60)
[2024-07-11 16:13] LABS: Albumin/Globulin Ratio 1.5 (1.1-1.8); Alkaline Phosphatase 77 U/L (38-126); Anion Gap 12.3 mEq/L (5-15); Aspartate Amino Transferase 32 U/L (14-36); Bilirubin,Total 0.2 mg/dl (0.2-1.3); Calcium 9.2 mg/dl (8.4-10.2); Carbon Dioxide 23 mmol/L (22.0-30.0); Glucose 88 mg/dl (74-100); Total Protein,Serum 7.6 g/dl (6.3-8.2)
--- NOTE | 2024-07-11 16:26 | PC.NURSE ---
Dr Can and I at bedside for pelvic exam. Pt tolerated well. Dr Can also reviewed d/c instructions and follow up with Dr Leone
[2024-07-11 16:38] VITALS: BP 148/78; PULSE 90; RESP 20; TEMP 36.8; O2SAT 98
== END 2024-07-11 16:39 | disposition home or self-care (01) ==
PROVIDERS: Emergency Provider Emergency Medicine; PCP Family Medicine
DX: N93.9 Abnormal uterine and vaginal bleeding, unspecified (principal); F17.210 Nicotine dependence, cigarettes, uncomplicated
CPT/HCPCS: 80053; 81025; 85025; 99283

== ENCOUNTER 2024-08-02 13:50 | Outpatient (CLI) | payer BC, MEDICAID, SELFPAY | END 2024-08-02 23:59 | disposition home or self-care (01) | LOC: PREOP 13:50 | PROVIDERS: PCP Family Medicine; Visit Provider Obstetrics & Gynecology | DX: R69 Illness, unspecified (principal) ==

== ENCOUNTER 2024-08-07 06:48 | Day surgery (SDC) | payer BC, MEDICAID, SELFPAY ==
[2024-08-02 19:35] LABS: HCG Qualitative, Serum Negative (Negative)
[2024-08-03 15:32] VITALS: BMI 37.3
[2024-08-07] VITALS (9 sets, daily range): BP systolic 120–136; BP diastolic 75–88; PULSE 69–82; RESP 16–18; TEMP 36.1–36.6; O2SAT 90–97
--- NOTE | 2024-08-07 07:42 | P.PNANES_ITS ---
[facility] Disclaimer: The information contained in this section may have been updated after the patient was seen, as this information can be updated by other users. Medical History Endometriosis Carpal tunnel syndrome Psoriasis History of gastroesophageal reflux (GERD) Allergies Hypertension Other skilled nursing (current) drug therapy Low back pain Heel spur Surgical History History of hand surgery H/O shoulder surgery History of neck surgery History of back surgery History of tympanostomy tube placement History of tonsillectomy Family History Father Family history of cancer Grandmother Family history of diabetes mellitus type II Grandmother Family history of hypertension Social History Smoking Status: Current every day smoker tobacco type: cigarettes packs per day: 1 alcohol intake: never substance use type: denies use current occupational status: employed Travel in the last 8 weeks: None household members: other housing: house [facility] Anesthesia Checklist Patient Identification Patient Identification: Arm Band and Family Structural Data Admitted From: Home Planned Operative Procedure/s: Hysteroscopy. D & C. Amrit. Consent for Planned Operative Procedure(s) Verified: Yes Verified Documents: Surgical Consent and History and Physical NPO Status Verified Time NPO: 00:00 Additional verifications Patient : No Anesthesia Reactions: No Hx Blood Transfusions: No Blood Transfusion Reaction: No Cephalosporin Allergy: No Previous Colonoscopy: No Airway Assessment Mallampati Score:: Class I C-Spine Mobility Assessed: Yes TMJ Mobility Assessed: Yes Dentition: Good Dentition Neurological Assessment Level of Consciousness: Awake, Alert, Appropriate and Follows Commands Hx Seizures: No Numbness or tingling in extremities: No Anesthesia Plan Anesthesia Risk discussed: Yes ASA Class: II Anesthesia Type: General Preoperative Comments Pre-Operative Comments: Controlled acid reflux.
[2024-08-07] MEDS: SODIUM CHLORIDE IRRIG SOLUTION 3,000 ML 3000 ML IR (08:15)
[2024-08-07] MEDS: ROPIVACAINE 0.5% 30ML VIAL 150 MG (08:24)
--- NOTE | 2024-08-07 08:39 | P.PNANES_ITS ---
[facility] Anesthesia Record Part I Anesthesia Record I Intake, IV Amount: 400 Hydration: Adequate Estimated blood loss (mL): 24 Urine output (mL): 20 Blood Pressure: 126/76 SaO2: 93 Pulse Rate: 69 Airway Patency: Patent Respiratory Rate: 18 Temperature: 97.2 F Patient is:: Drowsy and Stable Stable to PACU at:: 08:33
--- NOTE | 2024-08-07 08:41 | P.OP_ITS ---
Date of procedure: 08/07/24 Pre-op Diagnosis:: Menorrhagia Post-op Diagnosis:: Menorrhagia Procedure performed:: Hysteroscopy, dilation and curettage, NovaSure relation Surgeon:: Sung Leone MD Tool Crib Clerk(s):: None BORDER POLICE:: Ye Velarde Anesthesia: LMA Estimated blood loss (mL): 50 Clinical Note:: She is a 33 years old lady who complains of severe heavy periods. She says that they are debilitating at times. She has tried IUDs and control pills in the past. None of these have helped. As result of that she was offered hysteroscopy, D&C and NovaSure ablation. The risk and benefits of surgery were discussed with the patient prior to surgery. Operative findings:: She had a normal-appearing endometrial cavity although the endometrium itself appeared somewhat erythematous and inflamed. She could have had chronic endometritis. The endometrium sounded to 8 cm and was 3.5 cm wide. The length of the endometrial cavity was 5.5 cm. Operative note:: She was taken to the operating room where LMA anesthesia was found be adequate. She was prepped and draped in the normal sterile fashion in the lithotomy pos ition. A weighted speculum was placed in the vagina and the anterior lip of the cervix was grasped with a tenaculum. The cervix was then dilated to approximately 6 mm. I then inserted a hysteroscope into the uterine cavity and the findings were as previously dictated. I then performed a gentle curettage with a medium curette. I then sounded the uterus and determine the length of the uterus. I then inserted the NovaSure device and determine the width of the endometrial cavity. The length of the cavity was 5.5 cm and the width was 3.5 cm. This was placed into the NovaSure device. I then ran the device through its program. I further inspected the endometrial cavity and was found to be completely charred. I then injected 30 cc of 0.5% ropivacaine at the 3:00, 5:00, 7:00, and 9:00 positions of the cervix. She tolerated procedure well and was taken to the recovery room in excellent condition. All sponge and instrument counts were correct. The estimated blood loss was less than 50 cc. Condition: stable Disposition: PACU Specimens:: Endometrial curettings Complications:: None
--- NOTE | 2024-08-08 13:12 | EXP.ANES.II ---
[facility] Anesthesia Record Part II Anesthesia Record Part II Discharge Time: 09:03 Destination: Surgical Day Care (OP Surgery) PACU nurse assessment reviewed?: Yes Patient Condition:: Good Anesthesia Complications:: None Swallowing reflex intact?: Yes Airway Patency: Patent Cyanosis?: No Blood Pressure: 136/82 SaO2: 96 Respiratory Rate: 16 Pulse Rate: 79 Temperature: 97.2 F Mental Status: Alert & Oriented Pain level:: 0 Nausea and/or vomitting:: None Intake, IV Amount: 0 Hydration: Adequate
[2024-08-08 13:13] VITALS: BP 136/82; PULSE 79; RESP 16; TEMP 36.2; O2SAT 96
== END 2024-08-07 09:32 | disposition home or self-care (01) ==
PROVIDERS: Nurse Anesthetist, Certified Registered; PCP Family Medicine; Visit Provider Nurse Practitioner Obstetrics & Gynecology
PROC: 0U5B8ZZ Destruction of Endometrium, Via Natural or Artificial Opening Endoscopic (ICD-10-PCS; CPT 58563; principal; 2024-08-07 08:30)
DX: N92.0 Excessive and frequent menstruation with regular cycle (principal)
CPT/HCPCS: 58563; 84703; J1100; J2250; J2405; J3010

== ENCOUNTER 2024-12-22 09:38 | Outpatient (CLI) | payer BC, SELFPAY ==
--- OUTSIDE RECORDS SUMMARY | 2024-12-22 09:40 | XMS_ITS | Clinical Summary ---
Author Organization [facility] Address [address] [place] [id number] Phone [email or web address] Care Team Providers Care Telecom Assistant Name Role Phone Ksenia Vizcarra Primary Care Provider [phone] Allergies Active Allergy Reactions Criticality Noted Date Comments Cephalexin Anaphylaxis,Rash High 12/03/2017 Codeine 06/27/2018 Naproxen Other (see comments) Medium 12/03/2017 Swollen tongue Peanut-Containing Drug Products Anaphylaxis High 12/03/2017 Shellfish-Derived Products Anaphylaxis High 12/03/2017 Medications ARIPiprazole (ABILIFY) 5 MG tablet 06/23/2018 Active FLUoxetine (PROzac) 40 MG capsule 60 mg. 05/16/2018 Active gabapentin (NEURONTIN) 300 MG capsule 06/03/2018 Active ibuprofen (ADVIL,MOTRIN) 800 MG tablet Take 800 mg by mouth every 6 (six) hours if needed for mild pain. Active hydrOXYzine (VISTARIL) 25 MG capsule TAKE 1 CAPSULE BY MOUTH EVERY 8 HOURS NEEDED FOR 30 DAYS 11/04/2019 Active Ubrelvy 50 MG tablet TAKE 1 TABLET BY MOUTH AT ONSET OF MIGRAINE MAY TAKE SECOND DOSE AT LEAST 2 HOURS AFTER FIRST DOSE NEEDED UP TO 2 PER 24 HOURS ONCE A DAY 10/12/2019 Active methocarbamol (ROBAXIN) 750 MG tablet Take 750 mg by mouth if needed for muscle spasms. Active cyclobenzaprine (FLEXERIL) 10 MG tablet Take 10 mg by mouth 3 (three) times a day if needed. for muscle spams 01/13/2020 Active traMADol (ULTRAM) 50 MG tablet Take 50 mg by mouth every 8 (eight) hours if needed. for pain 02/08/2020 Active B Complex Vitamins (VITAMIN B COMPLEX PO) Take by mouth. Active Active Problems Problem Noted Date Diagnosed Date Hx of decompressive lumbar laminectomy 9 Overview (06/27/2018): -04/20/18 Other mononeuritis of upper extremity 12/25/2014 Overview (10/06/2017): Other tenosynovitis of hand and wrist 12/25/2014 Overview (10/06/2017): Social History Tobacco Use Types Packs/Day Years Used Date Smoking Tobacco: Every Day Smokeless Tobacco: Never Intimate Partner Violence Answer Date R ecorded Insults You Not on file 01/04/2022 Threatens You Not on file 01/04/2022 Screams at You Not on file 01/04/2022 Physically Hurt Not on file 01/04/2022 Intimate Partner Violence Score Not on file 01/04/2022 Depression Answer Date Recorded PHQ Total Score Not on file 01/04/2022 Stress Answer Date Recorded Stress in your Life 0 06/21/2020 Dealing with Stress Not on file 06/21/2020 Comments Unknown Sex and Gender Information Value Date Recorded Sex Assigned at Not on file Legal Sex Female 9:11 AM CDT Gender Identity Not on file Sexual Orientation Not on file Last Filed Vital Signs Vital Sign Reading Time Taken Comments Blood Pressure 132/86 02/28/2020 5:40 AM EDT Pulse 96 02/28/2020 5:40 AM EDT Temperature 36.4 C (97.6 F) 02/28/2020 5:40 AM EDT Respiratory Rate 18 02/28/2020 5:40 AM EDT Oxygen Saturation 99% 02/28/2020 5:40 AM EDT Inhaled Oxygen Concentration - - Weight 87.2 kg (192 lb 3.2 oz) 02/22/2020 5:43 A M EDT Height 157.5 cm (5' 2 ) 02/22/2020 5:43 AM EDT Body Mass Index 35.15 02/22/2020 5:43 AM EDT Plan of Treatment Health Maintenance Due Date Last Done Comments Cervical Cancer Screening Combo 1990 Dental Cleaning/Exam 1990 HPV / Cotest 1990 Pap Testing 1990 HPV Immunization (1 - 2-dose series) 2001 Hepatitis B Immunization (1 of 3 - 19+ 3-dose series) 2009 Tetanus Diphtheria and Pertu ssis Immunization (1 - Tdap) 2009 Covid-19 Immunization (1 - 2 024-25 season) 2024 Influenza Immunization (#1) 2025 HIB Immunization Aged Out No longer e ligible based on patient's age to complete this topic Hepatitis A Immunization Aged Out No longer eligible based on patient's age to complete this topic Pneumococcal: Ped (0 to 5 Yr s) and At-Risk Member (6 to 64 Yrs) Aged Out No longer e ligible based on patient's age to complete this topic Polio Immunization Aged Out No longer eligible based on patient's age to complete this topic Varicella Immunization Aged Out No lo nger eligible based on patient's age to complete this topic Insurance [employer] [id number] [place] [address] [employer] Care Teams Telecom Assistant Relationship Specialty Start Date End Date Ksenia Vizcarra [address] [address] [place] [id number] PCP - General Internal Medicine 12/28/19
--- OUTSIDE RECORDS SUMMARY | 2024-12-22 09:41 | XMS_ITS | Encounter Summary ---
Author Organization [facility] Address [address] [place] [address] Care Team Providers Care Salad Counter Attendant Name Role Phone Michael Gunn MD Primary Care Provider + Reason for Visit * Reason Comments Med Refill Encounter Details Date Type Department Care Team (Late st Contact Info) Description 11/04/2024 Refill [facility] [address] [place] [address] Michael Gunn MD [address] [place] [address] Recurrent major depressive disorder, in full remission Social History Tobacco Use Types Packs/Day Years Used Date Smoking Tobacco: Every Day Cigarettes 0.5 15 Smokeless Tobacco: Never Comments:12-07-17: working o n quitting Alcohol Use Standard Drinks/Week Comments No 0 (1 standard drink = 0.6 oz pur e alcohol) PHQ-2 Answer Date Recorded Retired PHQ-9: Brief Depression Severity Measure Score 18 05/19/2022 Abuse Screen Answer Date Recorded Unsafe at Home or Work/School Not on file Feels Threatened by Someone? Not on file 01/2023 Does Anyone Keep You from Co ntacting Others or Doint Things Outside the Home? Not on file 02/15/2023 Physical Sign of Abuse Present Not on file 1 Housing Stability Answer Date Recorded Current Living Arrangements Not on file 01/2023 Potentially Unsafe Housing Conditions Not on pawel e 02/15/2023 Family and Community Support Answer Addison e Recorded Help with Day-to-Day Activities Not on file 02/15/2023 Lonely or Isolated Not on file 02/15/2023 Employment Answer Date Recorded Do you want help finding or keeping work or a armando b? Not on file 02/15/2023 Disabilities Answer Date Recorded Concentrating, Remembering, or Making Decisions Difficulty Not on file 02/15/2023 Doing Errands Independently Difficulty Not on fi le 02/15/2023 Education Answer Date Recorded Help with school or training? Not on file Preferred Language Not on file 02/15/2023 PHQ-2 Answer Date Recorded Retired PHQ-9: Brief Depression Severity Measure Score 18 05/19/2022 Comments No Sex and Gender Information Value Date Recorded Sex Assigned at Not on file Legal Sex Female 12:27 PM EDT Gender Identity Not on file Sexual Orientation Not on file documented as of this encounter Miscellaneous Notes * Telephone Encounter - Aura Cooper RegSched Rep - 11/09/2024 9:06 AM EDT LVM TO SCHEDULE APPT HUB TO RELAY documented in this encounter Plan of Treatment Not on file documented as of this encounter Visit Diagnoses Diagnosis Recurrent major depressive disorder, in full remission documented in this encounter Additional Health Concerns Assessment Noted Time PHQ-2 Depression Total Score: 2 06/01/19 24 2:25 PM EST documented as of this encounter Care Teams Salad Counter Attendant Relationship Specialty Start Date End Date Michael Gunn [facility] [place] [address] PCP - General Family Medicine 09/03/21 documented as of this encounter
--- OUTSIDE RECORDS SUMMARY | 2024-12-22 09:41 | XMS_ITS | Clinical Summary ---
Author Organization Healthcare Address [address] [place] [address] Care Team Providers Care Marine Oiler Name Role Phone Iva Sanchez GAYLA Primary Care Provider [phone] Allergies Active Allergy Reactions Criticality Noted Date Comments Cephalexin Anaphylaxis,Itching, Rash,Short ness of breath High 03/18/2015 Meloxicam Unknown - Patient st ates they do not know rxn details,Itching Medium 09/03/2021 Naproxen Nausea,Other - pleas e document in the comment field,Unknown - Patient states they do not know rxn details,Rash Medium 12/03/2017 Swollen tongue Medications ALPRAZolam (Xanax) 0.5 MG tablet Take 1 tablet (0.5 mg) by mouth at night if needed. 11/30/2023 Active busPIRone (Buspar) 10 MG tablet Take 1 tablet (10 mg) by mouth 3 (three) times a day. 09/16/2023 Active EPINEPHrine (Epipen) 0.3 MG/0.3ML injection syringe Inject 0.3 mL (0.3 mg) as directed. Active FLUoxetine (PROzac) 40 MG capsule Take 1 capsule (40 mg) by mouth 1 (one) time each day. 12/08/2023 Active spironolactone (Aldactone) 50 MG tablet Take 1 tablet (50 mg) by mouth 1 (one) time each day in the morning. Active Active Problems Problem Noted Date Diagnosed Date Anxiety 01/17/2024 Prediabetes 01/17/2024 Depression 01/17/2024 Family History Medical History Relation Name Comments Cancer Father Diabetes type I Maternal Grandmother Cancer Other Relation Name Status Comments Father Maternal Grandmother Alive Other Social History Tobacco Use Types Packs/Day Years Used Date Smoking Tobacco: Every Day Cigarettes Smokeless Tobacco: Never Tobacco Cessation:Ready to Q uit: Not Asked; Counseling Given: Not Answered Alcohol Use Standard Drinks/Week Comments Not Currently 0 (1 standard drink = 0.6 oz pur e alcohol) PHQ-2 Answer Date Recorded Patient Health Questionnaire-2 Score 1 01/17/2024 Comments Unknown Sex and Gender Information Value Date Recorded Sex Assigned at Female 01/17/2024 9:26 AM EDT Legal Sex Female 7:14 AM EDT Gender Identity Female 01/17/2024 9:26 AM EDT Sexual Orientation Straight 01/17/2024 9: 26 AM EDT Last Filed Vital Signs Vital Sign Reading Time Taken Comments Blood Pressure 125/87 01/17/2024 8:46 AM EDT Pulse 86 01/17/2024 8:46 AM EDT Temperature - - Respiratory Rate - - Oxygen Saturation - - Inhaled Oxygen Concentration - - Weight 89.2 kg (196 lb 10.4 oz) 01/17/2024 8:46 AM EDT Height 157.5 cm (5' 2 ) 01/17/2024 8:46 AM EDT Body Mass Index 35.97 01/17/2024 8:46 AM EDT Plan of Treatment Health Maintenance Due Date Last Done Comments [facility]-Diabetes: Hemoglobin A1C 1990 [facility]-HIV Screening 1990 [facility]-Hepatitis C Screening 1990 [facility]-/Child/Adol SDOH Screenings 1990 [facility]-Varicella Vaccines (1 of 2 - 13+ 2-dose series) 10/27/2003 [facility]- SDOH Screenings 2008 [facility]-Adult SDOH Screenings 2008 [facility]-Pneumococcal Vaccine: Pediatrics (0 to 5 Years) and At-Risk Patients (6 to 49 Years) (1 of 2 - PCV) 2009 [facility]-Pap Smear 10/27/2011 HPV Vaccines (1 - 3-dose SCDM series) 2017 [facility]-Cervical Cancer Screening 2020 [facility]-HPV/Cotest 2020 [id number] Vaccine ( - season) 2024 06/04/2020 [facility]-Influenza Vaccine (#1) 2025 02/06/2023, [facility]-Depression Screening 01/16/2025 01/17/2024 [facility]-DTaP,Tdap,and Td Vaccines (3 - Td or Tdap) 10/14/2031 10/13/2021, 01/13/2005 [facility]-Zoster Vaccines (1 of 2) 2040 [facility]-Hepatitis B Vaccines Completed 016, 01/30/2002, 10/24/2001, Additional history exists [facility]-Obesity Intervention Completed 01/17/2024 [facility]-HIB Vaccines Aged Out No longer e ligible based on patient's age to complete this topic [facility]-Hepatitis A Vaccines Aged Out No longer eligible based on patient's age to complete this topic [facility]-IPV Vaccines Aged Out No longer e ligible based on patient's age to complete this topic [facility]-Rotavirus Vaccines Aged Out No lo nger eligible based on patient's age to complete this topic Care Teams Marine Oiler Relationship Specialty Start Date End Date Iva Sanchez, FREIGHT BROKER [address] [place] [address] PCP - General 01/17/24
--- OUTSIDE RECORDS SUMMARY | 2024-12-22 09:41 | XMS_ITS | Clinical Summary ---
[facility] Address [address] [place] [address] Care Team Providers Care Small Animal Caretaker Name Role Phone Michael Gunn MD Primary Care Provider + Allergies Active Allergy Reactions Criticality Noted Date Comments Cephalexin Anaphylaxis,Rash,Itc hin g,Shortness Of Breath High 03/18/2015 Codeine Hives,Shortness Of Breath,Anaphylaxis High 06/27/2018 Meloxicam GI Intolerance 09/03/2021 Metformin Diarrhea 05/19/2022 Naproxen Other (See Comments) Medium 12/03/2017 Swollen tongue Nsaids Nausea Only,Other (S ee Comments) 09/03/2021 Nuts Anaphylaxis High 09/03/2021 Peanut-Containing Drug Products Anaphylaxis High 12/03/2017 Shellfish-Derived Products Anaphylaxis High 12/03/2017 Medications ubrogepant (UBRELVY) 50 MG tablet TAKE 1 TABLET BY MOUTH AT ONSET OF MIGRAINE MAY TAKE SECOND DOSE AT LEAST 2 HOURS AFTER FIRST DOSE NEEDED UP TO 2 PER 24 HOURS ONCE A DAY 0 Active albuterol (PROVENTIL) (2.5 MG/3ML) 0.083% nebulizer solution albuterol sulfate 2.5 mg/3 mL (0.083 %) solution for nebulization USE CONTENTS OF 1 VIAL IN NEBULIZER EVERY 4 TO 6 HOURS NEEDED FOR COUGH FOR WHEEZING FOR SHORTNESS OF BREATH Active EPINEPHrine (EPIPEN) 0.3 MG/0.3ML solution auto-injector injection Active acyclovir (ZOVIRAX) 400 MG tablet Take 1 tablet by mouth 3 (Three) Times a Day. 3 Active spironolactone (ALDACTONE) 50 MG tablet Take 1 tablet by mouth Daily. 4 Active busPIRone (BUSPAR) 10 MG tablet Take by mouth 2 (Two) Times a Day. 4 Active rOPINIRole (REQUIP) 0.5 MG tablet Start with 1/2 tablet daily for at least 2 days and then increase to 1 tablet daily. 4 Active hydrocortisone 2.5 % cream Apply 1 Application topically to the appropriate area as directed As Needed for Rash or Irritation. 4 Active ALPRAZolam (Xanax) 0.5 MG tabletIndicatio ns:Anxiety Take 1 tablet by mouth 2 (Two) Times a Day As Needed for Anxiety. 10 tablet 4 Active FLUoxetine (PROzac) 40 MG capsuleIndicati ons:Recurrent major depressive disorder, in full remission Take 2 capsules by mouth Daily. 60 capsule 3 5 Active Active Problems Problem Noted Date Diagnosed Date Primary hypertension 09/03/2022 Assessment & Plan (12/01/2022 3:32 PM EDT): Hypertension is worsening. Dietary sodium restriction. Weight loss. Regular aerobic exercise. Medication changes per orders. Ambulatory blood pressure monitoring. Blood pressure will be reassessed at the next regular appointment. Assessment & Plan (11/03/2022 8:21 AM EDT): Hypertension is improving with treatment. Continue current treatment regimen. Dietary sodium restriction. Weight loss. Continue current medications. Ambulatory blood pressure monitoring. Blood pressure will be reassessed at the next regular appointment. Assessment & Plan (09/03/2022 9:14 AM EDT): Hypertension is newly identified. Continue current treatment regimen. Dietary sodium restriction. Regular aerobic exercise. Blood pressure will be reassessed at the next regular appointment. Prediabetes 07/10/2022 Major depressive disorder, recurrent, in full re [place] 12/03/2021 Assessment & Plan (05/19/2022 3:57 PM EST): Patient's depression is recurrent and is moderate without psychosis. Their depression is currently active and the condition is worsening. This will be reassessed 2 months. F/U as described:Increase Prozac to 80 mg daily. Assessment & Plan (01/26/2022 9:02 AM EDT): Patient's depression is single episode and is moderate without psychosis. Their depression is currently in partial remission and the condition is unchanged. This will be reassessed at the next regular appointment. F/U as described:Lexapro changed to Prozac 30 mg. Assessment & Plan (12/03/2021 8:22 AM EDT): Patient's depression is single episode and is moderate without psychosis. Their depression is currently in partial remission and the condition is improving with treatment. This will be reassessed in 3 months. F/U as described:patient will continue current medication therapy. Class 3 severe obesity due t o excess calories with serious comorbidity and body mass index (BMI) of 40.0 to 44.9 in adult 12/03/2021 Assessment & Plan (12/01/2022 3:32 PM EDT): Patient's (Body mass index is 40.09 kg/m .) indicates that they are morbidly/severely obese (BMI > 40 or > 35 with obesity - related health condition) with health conditions that include hypertension and GERD . Weight is unchanged. BMI is above average; BMI management plan is completed. We discussed portion control, increasing exercise, and pharmacologic options including phentermine . Assessment & Plan (11/03/2022 8:21 AM EDT): Patient's (Body mass index is 40.06 kg/m .) indicates that they are morbidly/severely obese (BMI > 40 or > 35 with obesity - related health condition) with health conditions that include hypertension . Weight is worsening. BMI is above average; BMI management plan is completed. We discussed portion control, increasing exercise, and pharmacologic options including Lomaira . Assessment & Plan (07/10/2022 1:25 PM EST): Patient's (Body mass index is 39.06 kg/m .) indicates that they are morbidly/severely obese (BMI > 40 or > 35 with obesity - related health condition) with health conditions that include Dysglycemia . Weight is worsening. BMI is above average; BMI management plan is completed. We discussed low calorie, low carb based diet program, portion control, increasing exercise and pharmacologic options including Wegovy. Patient was given a starter sample of Wegovy 0.25 mg to begin weekly. Prescription for 0.5 mg will be sent to pharmacy to initiate prior authorization process. Patient dose will be increased every 4 weeks. Patient will follow-up in 3 months. Assessment & Plan (05/19/2022 3:59 PM EST): Patient's (Body mass index is 38.45 kg/m .) indicates that they are morbidly/severely obese (BMI > 40 or > 35 with obesity - related health condition) with health conditions that include Depression . Weight is worsening. BMI is is above average; BMI management plan is completed. We discussed low calorie, low carb based diet program, portion control, increasing exercise, pharmacologic options including Phentermine and Bariatric surgery.. Patient's insurance will be changing soon and she will contact her insurance to see if she has formulary coverage of the GLP-1 agonist which has been effective for her in the past, for coverage for bariatric procedure which patient is considered in the past. At present efforts to reduce calorie intake, increase physical activity, and use other antiobesity medications is keeping the patient at her current weight at best Assessment & Plan (03/17/2022 8:19 AM EST): Patient's (Body mass index is 37.85 kg/m .) indicates that they are morbidly obese (BMI > 40 or > 35 with obesity - related health condition) with health conditions that include none . Weight is worsening. BMI is is above average; BMI management plan is completed. We discussed low calorie, low carb based diet program, portion control, increasing exercise and Order TSH. If normal will stop Topiramate and add Metformin as patient takes abilify.. Phentermine will be continued Assessment & Plan (12/03/2021 8:21 AM EDT): Patient's (Body mass index is 37.67 kg/m .) indicates that they are morbidly obese (BMI > 40 or > 35 with obesity - related health condition) with health conditions that include none . Weight is unchanged. BMI is is above average; BMI management plan is completed. We discussed low calorie, low carb based diet program, portion control and increasing exercise. Encounters Date Type Department Care Team Description 11/04/2024 Refill [facility] [address] [place] [phone] Michael Gunn MD Recurrent major depressive disorder, in full remission from Last 3 Months Immunizations Immunization Administration Dates Next Due COVID-19 (PFIZER) Purple Cap Monovalent 06/04/19 21 Flu Vaccine Quad PF >36MO 03/20/2016 Fluzone (or Fluarix & Flulav al for VFC) >6mos 02/06/2023,03/20/2016 Hep B, Adolescent or Pediatric 01/30/2002,2001,09/22/2001 Hepatitis B 11/28/2015 MMR 12/22/1995 Td (TDVAX) 01/13/2005 Tdap 10/13/2021 Family History Medical History Relation Name Comments Cancer Maternal Aunt Lilli alcantar Lung cancer Diabetes Maternal Grandmother Socorro on dads side Anxiety disorder Mother Laurel gamboa Depression Mother Laurelanthony gamboa Cancer Paternal Grandmother Dimitry weathers Breast cancer Anxiety disorder Sister 1 Cheryl zuleta Depression Sister 1 Cheryl zuleta Anxiety disorder Sister 2 Celine auxier Depression Sister 2 Celine auxier No Known Problems Neg Hx Relation Name Status Comments Maternal Aunt Lilli alcantar Maternal Grandmother Socorro on dads side Mother Laurel gamboa Paternal Grandmother Dimitry weathers Sister 1 Cheryl zuleta Sister 2 Celine falcon Social History Tobacco Use Types Packs/Day Years Used Date Smoking Tobacco: Every Day Cigarettes 0.5 15 Smokeless Tobacco: Never Tobacco Cessation:Ready to Q uit: Not Asked; Counseling Given: Not Answered Comments:12-07-17: working on quitting Alcohol Use Standard Drinks/Week Comments No [...] Sign Reading Time Taken Comments Blood Pressure 120/80 11/30/2023 4:49 PM EDT Pulse 95 11/30/2023 4:49 PM EDT Temperature 36.2 C (97.1 F) 11/30/2023 4:49 PM EDT Respiratory Rate 18 11/30/2023 4:49 PM EDT Oxygen Saturation 97% 11/30/2023 4:49 PM EDT Inhaled Oxygen Concentration - - Weight 92.7 kg (204 lb 6.4 oz) 11/30/2023 4:49 P M EDT Height 157.5 cm (5' 2 ) 11/30/2023 4:49 PM EDT Body Mass Index 37.39 11/30/2023 4:49 PM EDT Plan of Treatment Health Maintenance Due Date Last Done Comments Annual Gynecologic Pelvic an d Breast Exam 1990 Pneumococcal Vaccine 0-49 (1 of 2 - PCV) 2009 PAP SMEAR 10/27/2011 ANNUAL PHYSICAL 12/03/2017 HEPATITIS C SCREENING 12/03/2017 COVID-19 Vaccine (2 - 2023- season) 2024 INFLUENZA VACCINE 02/07/2025 02/06/2023, , 03/20/2016 TDAP/TD VACCINES (3 - Td or Tdap) 10/14/2031 022, 01/13/2005 Insurance [facility] PPO Advance Directives Documents on File Type Date Recorded Patient Bladder Cleaner Expl anation POST/POLST (IN) - SCAN 08/17/2024 10:09 AM POST OP VISIT HYSTEROSCOPY/ [facility]/ [id number] Care Teams Small Animal Caretaker Relationship Specialty Start Date End Date Michael Gunn MD [address] [place] [address] PCP - General Family Medicine 09/03/21
[2024-12-22 10:44] LABS: Hematocrit 46.8 % (37.0-47.0); Hemoglobin 15.3 g/dL (12.2-16.2); Immature Granulocytes % 0.3 %; Mean Corpuscular HGB Conc 32.7 g/dL (31.8-35.4); Mean Corpuscular Hemoglobin 29.8 pg (27.0-31.2); Mean Corpuscular Volume 91.1 fl (81-99); Nucleated Red Blood Cells % 0 %; Platelet Count 208 K/mm3 (142-424); Red Blood Count 5.14 M/mm3 (4.20-5.40); Red Cell Distribution Width-SD 43.0 fL; White Blood Count 11.6 K/mm3 (4.8-10.8)
[2024-12-22 12:16] LABS: Alanine Aminotransferase 22 U/L (12-78); Albumin Level 4.4 g/dl (3.5-5.0); Anion Gap 13.2 mEq/L (5-15); Aspartate Amino Transferase 30 U/L (14-36); Bilirubin,Total 0.6 mg/dl (0.2-1.3); Blood Urea Nitrogen 9 mg/dl (7-17); Calcium 9.1 mg/dl (8.4-10.2); Carbon Dioxide 19 mmol/L (22.0-30.0); Chloride 106 mmol/L (98-107); Creatinine,Serum 0.50 mg/dl (0.52-1.04); Estimated Glomerular Filt Rate 141 ml/min (>60); GFR (African American) 171 ML/MIN (>60); Globulin 3.1 g/dL (1.3-3.2); Glucose 79 mg/dl (74-100); Potassium 4.2 mmoL/L (3.5-5.1); Sodium 134 mmol/L (136-145); Total Protein,Serum 7.5 g/dl (6.3-8.2)
[2024-12-22 12:17] LABS: Albumin/Globulin Ratio 1.4 (1.1-1.8); Alkaline Phosphatase 81 U/L (38-126)
== END 2024-12-22 23:59 | disposition home or self-care (01) ==
LOC: LAB 09:39
PROVIDERS: PCP Family Medicine; Visit Provider Obstetrics & Gynecology
DX: R53.83 Other fatigue (principal)
CPT/HCPCS: 36415; 80053; 85025

== ENCOUNTER 2025-02-02 11:44 | Outpatient (CLI) | payer BC, SELFPAY ==
--- OUTSIDE RECORDS SUMMARY | 2025-02-02 11:46 | XMS_ITS | Clinical Summary ---
Author Organization [facility] Address [address] [place] [address] Phone [email or web address] Care Team Providers Care Cook Relief Name Role Phone Ksenia Vizcarra Primary Care Provider [phone] Allergies Active Allergy Reactions Criticality Noted Date [...] Tdap) 2009 Covid-19 Immunization (1 - 2 -25 season) 2025 Influenza Immunization (#1) 2025 HIB Immunization Aged Out No longer e ligible based on patient's age to complete this topic Hepatitis A Immunization Aged Out No longer eligible based on patient's age to complete this topic Pneumococcal Immunization Aged Out No longer eligible based on patient's age to complete this topic Polio Immunization Aged Out No longer eligible based on patient's age to complete this topic Varicella Immunization Aged Out No lo nger eligible based on patient's age to complete this topic Insurance [place] 5 [place] 5 Member Subscriber Plan / Payer (Ef fective 2023-Present) Name:Heidi Gamboa Relation to Subscriber:Self Name:Heidi Gamboa Payer ID:[id number] (NAIC) Type:[facility] Address: [address] [id number] [place] [id number] Care Teams Cook Relief Relationship Specialty Start Date End Date Ksenia Vizcarra [address] [facility] [address] [place] [id number] PCP - General Internal Medicine 12/28/19
--- OUTSIDE RECORDS SUMMARY | 2025-02-02 11:46 | XMS_ITS | Clinical Summary ---
Author Organization [facility] Address [address] [place] [address] Care Team Providers Care Academic Department Chair Name Role Phone Michael Gunn MD Primary [...] Type Department Care Team Description 11/04/2024 Refill [facility] [address] [place], [place] [phone] Michael Gunn MD Recurrent major depressive [...] Socorro on dads side Anxiety disorder Mother Laurelmarquez gamboa Depression Mother Laurelmarquez gamboa Cancer Paternal Grandmother Dimitry weathers Breast cancer Anxiety disorder Sister 1 Cheryl zuleta Depression Sister 1 Cheryl zuleta Anxiety disorder Sister 2 Celine auxier Depression Sister 2 Celine auxier No Known Problems Neg Hx Relation Name Status Comments Maternal Aunt Lilli alcantar Maternal Grandmother Socorro on dads side Mother Laurel maie Paternal Grandmother Dimitry weathers Sister 1 Cheryl zuleta Sister 2 Celine auxier Social History Tobacco Use Types Packs/Day Years Used Date Smoking Tobacco: Every Day Cigarettes 0.5 15 Smokeless Tobacco: Never Tobacco Cessation:Ready to Q uit: Not Asked; Counseling Given: Not Answered Comments:12-07-17: working on quitting Alcohol Use Standard Drinks/Week Comments No 0 (1 standard drink = 0.6 oz pur e alcohol) PHQ-2 Answer Date Recorded Retired PHQ-9: Brief Depression Severity Measure Score 18 05/19/2022 PHQ-2 Answer Date Recorded Patient Health Questionnaire-9 Score 6 12/26/2024 Comments No Sex and Gender Information Value Date Recorded Sex Assigned at Female 12/26/2024 8:31 AM EDT Legal Sex Female 12:27 PM EDT Gender [...] ANNUAL PHYSICAL 12/03/2017 HEPATITIS C SCREENING 12/03/2017 INFLUENZA VACCINE 12/08/2024 02/06/2023, , 03/20/2016 TDAP/TD VACCINES (3 - Td or Tdap) 10/14/2031 022, 01/13/2005 Procedures Procedure Name Priority Date/Time Associated Diagnosis Comments SCANNED - LABS 12/22/2024 SCANNED - LABS 12/22/2024 from Last 3 Months Results * LABS SCANNED (12/22/2024) Only the most recent of2 resultswithin the time period is included. Michael Gunn MD LAB BLOOD ORDERABLES Fin al Result from Last 3 Months Insurance [facility] P[facility] Advance Directives Documents on File Type Date Recorded Patient Box Fabricator Expl anation POST/POLST (IN) - SCAN 08/17/2024 10:09 AM POST OP VISIT HYSTEROSCOPY/ [facility]/ [id number] Care Teams Academic Department Chair Relationship Specialty Start Date End Date Michael Gunn MD [address] [place] [address] PCP - General Family Medicine 09/03/21
--- OUTSIDE RECORDS SUMMARY | 2025-02-02 11:46 | XMS_ITS | Encounter Summary ---
[facility] Address [address] [place] [address] Care Team Providers Care Dry Cleaner Name Role Phone Michael Gunn MD Primary Care Provider + Reason for Visit * Reason Comments Med Refill Encounter Details Date Type Department Care Team (Late st Contact Info) Description 11/04/2024 Refill [facility] [address] [place] [address] Michael Gunn MD [address] [place] [address] Recurrent major depressive disorder, in [...] Score 18 05/19/2022 PHQ-2 Answer Date Recorded Retired PHQ-9: Brief [...] documented as of this encounter Care Teams Dry Cleaner Relationship Specialty Start Date End Date Michael Gunn MD [address] [place] [address] PCP - General Family Medicine 09/03/21 documented as of this encounter
--- OUTSIDE RECORDS SUMMARY | 2025-02-02 11:46 | XMS_ITS | Clinical Summary ---
Author Organization Healthcare Address [address] [place] [address] Care Team Providers Care Machine Folder Name Role Phone Iva Sanchez GAYLA Primary Care Provider [phone] Allergies Active Allergy Reactions Criticality Noted Date [...] SDOH Screenings 2008 [facility]-Adult SDOH Screenings 2008 [facility]-Pap Smear 10/27/2011 HPV Vaccines (1 - 3-dose SCDM series) 2017 [facility]-Cervical Cancer Screening 2020 [facility]-HPV/Cotest 2020 [id number] Vaccine (2 - season) 2025 06/04/2020 [facility]-Influenza Vaccine (#1) 2025 02/06/2023, [facility]Y-Depression [...] on patient's age to complete this topic [facility]Y-Pneumococcal Vaccine: Pediatrics (0 to 5 Years) and At-Risk Patients (6 to 49 Years) Aged Out No longer eligible based on patient's age to complete this topic [facility]Y-Rotavirus Vaccines Aged Out No lo nger eligible based on patient's age to complete this topic Care Teams Machine Folder Relationship Specialty Start Date End Date Iva Sanchez, CRM MANAGER [address] [place] [address] PCP - General 01/17/24
[2025-02-02 12:34] LABS: Hematocrit 44.3 % (37.0-47.0); Hemoglobin 14.9 g/dL (12.2-16.2); Immature Granulocytes % 0.4 %; Mean Corpuscular HGB Conc 33.6 g/dL (31.8-35.4); Mean Corpuscular Hemoglobin 30.5 pg (27.0-31.2); Mean Corpuscular Volume 90.6 fl (81-99); Nucleated Red Blood Cells % 0 %; Platelet Count 264 K/mm3 (142-424); Red Blood Count 4.89 M/mm3 (4.20-5.40); Red Cell Distribution Width-SD 42.0 fL; White Blood Count 12.8 K/mm3 (4.8-10.8)
[2025-02-02 12:43] LABS: HCG Qualitative, Serum Negative (Negative)
[2025-02-02 12:50] LABS: Alanine Aminotransferase 24 U/L (12-78); Albumin Level 4.3 g/dl (3.5-5.0); Albumin/Globulin Ratio 1.5 (1.1-1.8); Alkaline Phosphatase 81 U/L (38-126); Anion Gap 13.4 mEq/L (5-15); Aspartate Amino Transferase 40 U/L (14-36); Bilirubin,Total 0.4 mg/dl (0.2-1.3); Blood Urea Nitrogen 10 mg/dl (7-17); Calcium 8.8 mg/dl (8.4-10.2); Carbon Dioxide 19 mmol/L (22.0-30.0); Chloride 104 mmol/L (98-107); Creatinine,Serum 0.60 mg/dl (0.52-1.04); Estimated Glomerular Filt Rate 114 ml/min (>60); GFR (African American) 138 ML/MIN (>60); Globulin 2.8 g/dL (1.3-3.2); Glucose 91 mg/dl (74-100); Potassium 4.4 mmoL/L (3.5-5.1); Sodium 132 mmol/L (136-145); Total Protein,Serum 7.1 g/dl (6.3-8.2)
== END 2025-02-02 23:59 | disposition home or self-care (01) ==
LOC: PREOP 11:45
PROVIDERS: PCP Family Medicine; Visit Provider Obstetrics & Gynecology
DX: Z01.812 Encounter for preprocedural laboratory examination (principal)
CPT/HCPCS: 80053; 84703; 85025

== ENCOUNTER 2025-02-06 07:35 | Day surgery (SDC) | payer BC, SELFPAY ==
[2025-02-02 12:11] VITALS: BMI 34.5
[2025-02-06] VITALS (10 sets, daily range): BP systolic 120–152; BP diastolic 65–85; PULSE 84–94; RESP 16–20; TEMP 36.3–43; O2SAT 92–97
[2025-02-06 08:33] LABS: Urine Pregnancy, HCG Qual. Negative (Negative)
--- NOTE | 2025-02-06 08:36 | P.PNANES_ITS ---
[facility] Disclaimer: The information contained in this section may have been updated after the patient was seen, as this information can be updated by other users. Medical History Endometriosis Carpal tunnel syndrome Psoriasis History of gastroesophageal reflux (GERD) Allergies Hypertension Other fci (current) drug therapy Low back pain Heel spur Surgical History History of endometrial ablation History of hand surgery right H/O shoulder surgery right History of neck surgery History of back surgery History of tympanostomy tube placement History of tonsillectomy Family History Father Family history of cancer Grandmother Family history of diabetes mellitus type II Grandmother Family history of hypertension Social History Smoking Status: Current every day smoker tobacco type: cigarettes packs per day: 1 alcohol intake: never substance use type: denies use current occupational status: employed Travel in the last 8 weeks?: None household members: other housing: house Have you lived/traveled outside US in past 30 days?: No Contact w/someone who lives/traveled outside US past 30 days?: No Exposure to someone with infectious disease in past 14 days?: No Do you have a fever (greater than 100.4 F or 38 C)?: No Have you tested positive for COVID-19?: No Exposed to someone with COVID-19 in past 14 days?: No Do you have a sore throat?: No Do you have a cough?: No Do you have any weakness?: No Do you have any diarrhea?: No Are you experiencing any unusual bleeding?: No Do you have any muscle aches/pain?: No Do you have any abdominal pain?: No Are you experiencing loss of taste or smell?: No [facility] Anesthesia Checklist Patient Identification Patient Identification: Arm Band Structural Data Admitted From: Home Planned Operative Procedure/s: Laparoscopic Bilateral Salpingectomy Consent for Planned Operative Procedure(s) Verified: Yes Verified Documents: Surgical Consent and History and Physical NPO Status Verified Time NPO: 07:00 (gatorade) Additional verifications Anesthesia Reactions: No Hx Blood Transfusions: No Blood Transfusion Reaction: No Airway Assessment Mallampati Score:: Class II C-Spine Mobility Assessed: Yes TMJ Mobility Assessed: Yes Dentition: Good Dentition Neurological Assessment Level of Consciousness: Awake, Alert and Appropriate Anesthesia Plan Anesthesia Risk discussed: Yes Anesthesia Plan: Verified ASA Class: II Anesthesia Type: General
[2025-02-06] MEDS: LACTATED RINGERS 1000ML 1,000 ML 25 ML IV (10:00)
--- NOTE | 2025-02-06 10:21 | EXP.OP.NOTE ---
Date of procedure: 02/06/25 Pre-op Diagnosis:: 1. Desires sterilization Post-op Diagnosis:: 1. Desires sterilization Procedure performed:: Laparoscopic bilateral salpingectomy Surgeon:: Andra Jeffers DO ASSOCIATE PROFESSOR OF FORESTRY:: Aby Haile Anesthesia: GETA Estimated blood loss (mL): 10 Operative findings:: 1. Bimanual examination revealed an anteverted 6-week size uterus with smooth contour without any adnexal masses. 2. Laparoscopic exam revealed normal-appearing uterus, ovaries, fallopian tubes and liver. 3. There were adhesions noted extending from the left colon to the left pelvic sidewall Operative note:: Heidi Gamboa is a 34-year-old who desires permanent sterilization. Risk and benefits were reviewed at length. We discussed LARCs and she desired to proceed with a permanent procedure. She has a history of an endormetrial ablation The patient was taken to the operating room where general anesthesia was obtained and noted to be adequate. SCDs were placed for thromboembolism prophylaxis and found to be working. The patient was placed in the dorsal lithotomy position using yellowfin stirrups. Timeout verified the correct patient and procedure. The patient was prepped and draped in a usual sterile fashion. A catheter was used to drain her bladder. An acorn uterine manipulator was placed and my top gloves were removed. 10mL of Lidocaine with epinepherine was injected infraumbilically and a scalpel was used to make a 5 mm infraumbilical incision with the assistance from a hemostat. The skin was tented and Optiview blunt trocar was introduced into the abdomen in the usual fashion. CO2 gas was connected with an initial pressure of 6 mmHg noted. Pneumoperitoneum was created to a pressure of 15 mmHg. The laparoscopic camera was inserted and a quick survey of the abdomen revealed grossly normal anatomy. The uterus appeared to be anteverted with a normal size shape and contour. The patient was placed in Trendelenburg. 10mLs of local anesthetic was injected and a 5mm incision was then made in the right lower quadrant with careful attention to avoid the rectus muscles and vasculature and under direct laparoscopic visualization a blunt trocar was introduced into the abdominal cavity. This process was repeated on the left side with an 8mm trocar. The fallopian tubes were identified on the cornu of the uterus and followed out to the ovaries which revealed grossly appearing anatomy. Visualization of the tube in its entirety was difficulty especially on the left secondary to adhesions and minimal pneumoperitoneum. the pressure was taken up to 20mmHg. A grasper was used to elevate the right fallopian tube. The Ligasure was used to grasp the fimbriated end of the fallopian tube, ensuring complete removal of the fimbriae, it was clamped, coagulated and transected. This process was repeated serially working towards the uterus to allow complete removal of the fallopian tube. Careful attention was given to transected the Mesosalpinx proximal to the fallopian tube. The fallopian tube was removed from the abdominal cavity and passed off the operative field to be sent to pathology. Hemostasis was noted. Attention was then turned to the left fallopian tube and the process was repeated. This was very challenging to get adequate visualization a 4th suprapubic port was attempted to be placed but abdominal access could not be obtained and the process was aborted. The fimbriated end of the fallopian tube was grasped and elevated and the LigaSure was used to clamp, coagulate, and transect. This process was worked down serially along the mesosalpinx and the fallopian tube was read removed in its entirety. Hemostasis was noted. The fallopian tube was removed and handed off the field to be sent to pathology. The intra-abdominal pressure was dropped down to a pressure of 6 to 7 mmHg and a full thorough evaluation with images to show that hemostasis was present. Pneumoperitoneum reduced, and all ports removed. The 4 abdominal incisions were closed with a single simple interrupted suture using 4-0 Monocryl. Dermabond was applied to each skin incision. The Idalia uterine manipulator was removed. All counts were correct x2, per nursing. The patient was extubated, stable, and transferred to the PACU. She will be discharged after meeting all DC criteria to include voiding, ambulating and tolerating PO independently. Condition: stable Disposition: same day Specimens:: Bilateral fallopian tubes Complications:: None
[2025-02-06] MEDS: LIDOCAINE 1% W/EPI 1:100,000 20ML VIAL 40 ML (10:40)
[2025-02-06] MEDS: SODIUM CHLORIDE IRRIG SOLUTION 3,000 ML 25 ML IR (10:50)
--- NOTE | 2025-02-06 12:02 | EXP.ANES.I ---
[facility] Anesthesia Record Part I Anesthesia Record I Intake, IV Amount: 900 Hydration: Adequate Estimated blood loss (mL): 15 Urine output (mL): 100 Blood Pressure: 152/85 SaO2: 94 Pulse Rate: 92 Airway Patency: Patent Respiratory Rate: 18 Temperature: 97.5 F Patient is:: Awake Stable to PACU at:: 12:07
[2025-02-06] MEDS: KETOROLAC 30MG/ML VIAL 30 MG IV (12:11)
--- NOTE | 2025-02-07 11:01 | P.PNANES_ITS ---
[facility] Anesthesia Record Part II Anesthesia Record Part II Discharge Time: 12:27 Destination: Surgical Day Care (OP Surgery) PACU nurse assessment reviewed?: Yes Patient Condition:: Good Anesthesia Complications:: None Swallowing reflex intact?: Yes Airway Patency: Patent Cyanosis?: No Blood Pressure: 131/75 SaO2: 92 Respiratory Rate: 16 Pulse Rate: 85 Temperature: 97.8 F Mental Status: Alert & Oriented Pain level:: 0 Nausea and/or vomitting:: None Intake, IV Amount: 0 Hydration: Adequate
[2025-02-07 11:02] VITALS: BP 131/75; PULSE 85; RESP 16; TEMP 36.6; O2SAT 92
== END 2025-02-06 13:00 | disposition home or self-care (01) ==
PROVIDERS: PCP Family Medicine; Visit Provider Obstetrics & Gynecology
PROC: (CPT 58661; principal; 2025-02-06 10:00)
DX: Z30.2 Encounter for sterilization (principal); D25.1 Intramural leiomyoma of uterus; N93.9 Abnormal uterine and vaginal bleeding, unspecified; D50.0 Iron deficiency anemia secondary to blood loss (chronic); N92.0 Excessive and frequent menstruation with regular cycle; E07.9 Disorder of thyroid, unspecified; I10 Essential (primary) hypertension; F17.210 Nicotine dependence, cigarettes, uncomplicated; N84.0 Polyp of corpus uteri; Z88.6 Allergy status to analgesic agent; Z88.1 Allergy status to other antibiotic agents; Z88.5 Allergy status to narcotic agent; Z30.09 Encounter for other general counseling and advice on contraception
CPT/HCPCS: 58661; 81025; J1100; J1200; J1885; J2003; J2004; J2250; J2405; J2704; J3010; J7120